=== PATIENT | female | born 1940 | race Caucasian/White ===

== ENCOUNTER 2017-06-09 23:56 | Observation (INO) ==
[2017-06-10 00:58] LABS: Bilirubin,Urine Negative (Negative); Blood,Urine Negative (Negative); Clarity,Urine Clear (Clear); Color,Urine Yellow (Yellow); Glucose,Urine (UA) Normal (Normal); Ketones,Urine Negative (Negative); Leukocyte Esterase,Urine Negative (Negative); Nitrite,Urine Negative (Negative); PH,Urine 6.5 pH Units (5.0-8.0); Protein,Urine Negative (Neg-Trace); Specific Gravity,Urine 1.013 (1.010-1.025); Urobilinogen,Urine Normal (Normal)
[2017-06-10 01:22] LABS: Basophils % 0.5 %; Eosinophils # 0.1 K/mcL (0.0-0.6); Eosinophils % 1.8 %; Hematocrit 27.2 % (35.3-44.9); Hemoglobin 9.5 g/dL (11.5-15.4); Immature Granulocytes % 0.4 % (0-4); Lymphocytes # 1.8 K/mcL (0.6-4.6); Lymphocytes % 31.4 %; Mean Corpuscular HGB Conc 34.9 g/dL (31.6-35.5); Mean Corpuscular Hemoglobin 31.9 pg (28.0-33.3); Mean Corpuscular Volume 91.3 fL (83.0-100.0); Monocytes # 0.7 K/mcL (0.0-1.3); Monocytes % 12.1 %; Neutrophils # 3.1 K/mcL (1.6-8.9); Platelet Count 192 K/mcL (140-400); Red Blood Count 2.98 M/mcL (3.82-4.97); Red Cell Distribution Width 14.1 % (11.5-14.5); Segmented Neutrophils % 53.8 %
[2017-06-10 01:28] LABS: Prothrombin Time 10.8 Seconds (9.4-12.1)
[2017-06-10 01:30] LABS: Activated Partial Thrombo Time 28.1 Seconds (26.0-36.0)
--- NOTE | 2017-06-10 01:31 | Emergency Department Note ---
Disposition Clinical Impression: Syncope Qualifiers: Syncope type: unspecified Qualified Code(s): R55 - Syncope and collapse Anemia Qualifiers: Anemia type: unspecified type Qualified Code(s): D64.9 - Anemia, unspecified Disposition: Admitted As Inpatient Condition: Fair Referrals: NONE,PCP [Primary Care Provider] - Syncope HPI - General Chief Complaint: ED Syncope Stated Complaint: syncope Time Seen by Provider: 06/10/17 00:10 Source: patient, family, EMS Mode of arrival: private vehicle Limitations: no limitations Nursing Notes Reviewed: Yes Vital Signs Reviewed: Yes - History of Present Illness Pt Subjective Complaint: collapsed Onset (ago): Just [employer] Number of episodes: 2 Duration: second(s) Description of Event: other ("Just passed out and then couldn't even sit up" per son) Prodromal Symptoms: none Witnessed: yes - by other (Patient's son) Context: at rest, getting out of bed Injuries Sustained Associated with Event: none Current Symptoms: none, back to baseline History: other (recently seen here for dyspnea; dx bronchitis) Treatments prior to arrival: none Associated trauma secondary to event: No - Related Data Home Medications Medication Instructions Recorded Confirmed Albuterol Sulfate [Proair Hfa] 2 puff IH Q4H 06/25/16 06/25/16 Amlodipine Besylate 10 mg PO DAILY 06/25/16 06/25/16 Aspirin [Lo-Dose Aspirin EC] 81 mg PO DAILY 06/25/16 06/25/16 Atorvastatin Calcium [Lipitor] 20 mg PO DAILY 06/25/16 06/25/16 Citalopram Hydrobromide 20 mg PO DAILY 06/25/16 06/25/16 [Citalopram HBr] Ezetimibe [Zetia] 10 mg PO DAILY 06/25/16 06/25/16 Lisinopril-HCTZ 20-12.5 [Prinzide 1 each PO DAILY 06/25/16 06/25/16 20-12.5] [place]-3/Dha/Epa/Fish Oil [Fish Oil 3,000 mg PO DAILY 06/25/16 06/25/16 1,000 mg Softgel] Pantoprazole Sodium [Protonix] 20 mg PO DAILY 06/25/16 06/25/16 Propranolol HCl 60 mg PO BID 06/25/16 06/25/16 Solifenacin Succinate [Vesicare] 10 mg PO DAILY 06/25/16 06/25/16 Spironolactone [Aldactone] 25 mg PO BID 06/25/16 06/25/16 Travoprost [Travatan Z] 2.5 ml OP HS 06/25/16 06/25/16 Ziprasidone HCl [Geodon] 120 mg PO HS 06/25/16 06/25/16 glyBURIDE [GlyBURIDE] 5 mg PO 0800 06/25/16 06/25/16 Previous Rx's Medication Instructions Recorded cephALEXin [Keflex] 500 mg PO TID #21 capsule 06/25/16 Albuterol Sulfate [Albuterol 2 puff IH Q4HR PRN #1 hfa.aer.ad 05/18/17 Inhaler] Levofloxacin [Levaquin] 750 mg PO DAILY #5 tablet 05/18/17 predniSONE [PredniSONE] 40 mg PO DAILY #10 tablet 05/18/17 Allergies Allergy/AdvReac Type Severity Reaction Status Date / Time Sulfa (Sulfonamide Allergy Hives Verified 05/18/17 03:15 Antibiotics) sulfacetamide Allergy Hives Verified 05/18/17 03:15 [From Sulfacet-R] sulfur [From Sulfacet-R] Allergy Hives Verified 05/18/17 03:15 All systems ED: reviewed and negative except as stated. Review of Systems: As Per HPI Constitutional: Reports: weight change ("lost 20 pounds in 2 months"). Denies: fever, chills, weakness, night sweats Eyes: Denies: eye pain, eye discharge, vision change ENT ED: Denies: ear pain, throat pain, congestion, dysphagia Cardiovascular: Denies: chest pain, palpitations, dyspnea on exertion, orthopnea , edema, syncope Respiratory: Denies: cough, dyspnea, wheezes, hemoptysis, stridor Gastrointestinal: Denies: abdominal pain, nausea, vomiting, diarrhea, constipation, hematemesis, melena, hematochezia Genitourinary: Denies: urgency, dysuria, frequency, hematuria Musculoskeletal: Denies: back pain, neck pain, joint swelling, arthralgia Integumentary: Denies: rash Neurological: Denies: headache, weakness, numbness, paresthesias, confusion, abnormal gait, vertigo Endocrine: Denies: fatigue Hematological/Lymphatic: Denies: easy bleeding, easy bruising Past Medical History - Past Medical History Attestation: Yes The following information was validated with the patient. Source: patient Medical history: Reports: COPD, diabetes, hyperlipidemia, hypertension, other Psychiatric history: Reports: anxiety, depression, schizophrenia DISHWASHER PREPARER history: Reports: no DISHWASHER PREPARER history - Social History Smoking Status: Never smoker Smokeless Tobacco Status: No Alcohol use: Reports: none Drug use: Reports: none Physical Exam - General Limitations: no limitations General appearance: alert, in no apparent distress - Head Head exam: atraumatic, normocephalic, normal inspection - Eye Eye exam: Present: normal appearance, PERRL, EOMI. Absent: scleral icterus, conjunctival injection, nystagmus, miosis, mydriasis, periorbital swelling, periorbital tenderness - ENT ENT exam: normal exam, normal oropharynx, mucous membranes moist - Neck Neck exam: Present: normal inspection, full ROM - Chest Chest inspection: Present: normal inspection, symmetric chest wall rise - Respiratory Respiratory exam: Present: normal lung sounds bilaterally. Absent: respiratory distress, wheezes, stridor - Cardiovascular Cardiovascular exam: Present: regular rate, normal rhythm - Abdominal Exam Abdominal exam: Present: soft, Non-Tender. Absent: distention, guarding, rebound, rigidity, mass - Extremities Exam Extremities exam: Present: normal inspection, full ROM - Expanded Lower Extremity Exam Gait: observed and normal - Back Exam Back exam: Present: normal inspection, full ROM. Absent: CVA tenderness (R), CVA tenderness (L) - Neurological Exam Neurological exam: Present: alert, oriented X3, CN II-XII intact, normal gait - Psychiatric Psychiatric exam: Present: normal affect, normal mood - Skin Skin exam: Present: warm, dry, intact, normal color Course Course Narrative: PAtient presents by EMS for evaluation of syncope x 2 per her son. Patient states that she was just really tired. She has no complaints at this time. Labs , CT and CXR ordered. EKG already done - NSR, unchanged compared to previous. Exam is unremarkable. No reported trauma. CT head - no acute abnormality. CXR normal. LAbs - acute anemia. 03/20 new compared with 05/18. Patient denies bleeding. Has had no bowel abnormalities. Denies trauma. Has no complaints of pain. Case discussed with Dr. Mcclure. He has had face to face time with the patient. He agrees with the assessment and plan. Patient has been accepted by the hospitalist. Vital Signs Temperature 97.7 F 06/10/17 00:35 Pulse Rate 76 06/10/17 00:35 Respiratory Rate 18 06/10/17 00:35 Blood Pressure 112/76 06/10/17 00:35 O2 Sat by Pulse Oximetry 99 06/10/17 00:35 Temperature 97.7 F 06/10/17 00:35 Pulse Rate 76 06/10/17 00:35 Respiratory Rate 18 06/10/17 00:35 Blood Pressure 112/76 06/10/17 00:35 O2 Sat by Pulse Oximetry 99 06/10/17 00:35 Oxygen Delivery Oxygen Delivery Room Air Syncope - Medical Records Medical records reviewed: Yes I reviewed the patient's medical records. - Lab Data Lab results reviewed: Yes I reviewed the patient's lab results. Lab results narrative: Laboratory Last Values WBC 5.7 K/mcL (4.3-11.1) 06/10/17 01:12 RBC 2.98 M/mcL (3.82-4.97) L 06/10/17 01:12 Hgb 9.5 g/dL (11.5-15.4) L 06/10/17 01:12 Hct 27.2 % (35.3-44.9) L 06/10/17 01:12 MCV 91.3 fL (83.0-100.0) 06/10/17 01:12 MCH 31.9 pg (28.0-33.3) 06/10/17 01:12 MCHC 34.9 g/dL (31.6-35.5) 06/10/17 01:12 RDW 14.1 % (11.5-14.5) 06/10/17 01:12 Plt Count 192 K/mcL (140-400) 06/10/17 01:12 MPV 9.0 fL (9.4-12.4) L 06/10/17 01:12 Immature Gran % 0.4 % (0-4) 06/10/17 01:12 Seg Neutrophils % 53.8 % 06/10/17 01:12 Lymphocytes % 31.4 % 06/10/17 01:12 Monocytes % 12.1 % 06/10/17 01:12 Eosinophils % 1.8 % 06/10/17 01:12 Basophils % 0.5 % 06/10/17 01:12 Neutrophils # 3.1 K/mcL (1.6-8.9) 06/10/17 01:12 Lymphocytes # 1.8 K/mcL (0.6-4.6) 06/10/17 01:12 Monocytes # 0.7 K/mcL (0.0-1.3) 06/10/17 01:12 Eosinophils # 0.1 K/mcL (0.0-0.6) 06/10/17 01:12 Basophils # 0.0 K/mcL (0.0-0.2) 06/10/17 01:12 PT 10.8 Seconds (9.4-12.1) 06/10/17 01:12 INR 1.0 06/10/17 01:12 APTT 28.1 Seconds (26.0-36.0) 06/10/17 01:12 D-Dimer 907 ng/mLFEU (0-500) H 06/10/17 01:12 Sodium 134 mEq/L (136-145) L 06/10/17 01:12 Potassium 3.7 mEq/L (3.5-4.5) 06/10/17 01:12 Chloride 100 mEq/L (98-109) 06/10/17 01:12 Carbon Dioxide 25 mEq/L (19-29) 06/10/17 01:12 BUN 21 mg/dL (7-20) H 06/10/17 01:12 Creatinine 1.07 mg/dL (0.57-1.11) 06/10/17 01:12 Est GFR ( Amer) > 60 (> 60) 06/10/17 01:12 Est GFR (Non-Af Amer) 50 (> 60) L 06/10/17 01:12 BUN/Creatinine Ratio 20 (6-26) 06/10/17 01:12 Glucose 117 mg/dL (70-99) H 06/10/17 01:12 Calculated Osmolality 282 (280-300) 06/10/17 01:12 Calcium 9.1 mg/dL (8.6-10.8) 06/10/17 01:12 Total Bilirubin 0.4 mg/dL (0.2-1.2) 06/10/17 01:12 AST 16 Units/L (5-34) 06/10/17 01:12 ALT 17 Units/L (0-55) 06/10/17 01:12 Alkaline Phosphatase 103 Units/L (38-126) 06/10/17 01:12 Troponin I 0.01 ng/mL (0-0.03) 06/10/17 01:12 Serum Total Protein 6.5 g/dL (6.0-8.3) 06/10/17 01:12 Albumin 2.9 g/dL (3.5-5.0) L 06/10/17 01:12 Globulin 3.6 g/dL (2.4-3.5) H 06/10/17 01:12 Albumin/Globulin Ratio 0.8 (1.1-2.2) L 06/10/17 01:12 Urine Color Yellow (Yellow) 06/10/17 00:50 Urine Clarity Clear (Clear) 06/10/17 00:50 Urine pH 6.5 pH Units (5.0-8.0) 06/10/17 00:50 Ur Specific [place] 1.013 (1.010-1.025) 06/10/17 00:50 Urine Protein Negative mg/dL (Neg-Trace) 06/10/17 00:50 Urine Glucose (UA) Normal mg/dL (Normal) 06/10/17 00:50 Urine Ketones Negative mg/dL (Negative) 06/10/17 00:50 Urine Blood Negative (Negative) 06/10/17 00:50 Urine Nitrite Negative (Negative) 06/10/17 00:50 Urine Bilirubin Negative (Negative) 06/10/17 00:50 Urine Urobilinogen Normal mg/dL (Normal) 06/10/17 00:50 Ur Leukocyte Esterase Negative (Negative) 06/10/17 00:50 Ur Culture Indicated? NO (NO) 06/10/17 00:50 Lab Results 06/10/17 Range/Units 00:50 Urine Color Yellow (Yellow) Urine Clarity Clear (Clear) Urine pH 6.5 (5.0-8.0) pH Units Ur Specific [place] 1.013 (1.010-1.025) Urine Protein Negative (Neg-Trace) mg/dL Urine Glucose (UA) Normal (Normal) mg/dL Urine Ketones Negative (Negative) mg/dL Urine Blood Negative (Negative) Urine Nitrite Negative (Negative) Urine Bilirubin Negative (Negative) Urine Urobilinogen Normal (Normal) mg/dL Ur Leukocyte Esterase Negative (Negative) Ur Culture Indicated? NO (NO) - Radiology Data Radiology results reviewed: Yes I reviewed the patient's radiology results. Chest X-Ray 06/10/17 00:11 IMPRESSION: Stable chest x-ray. No definite acute disease. D/ / Bharath Menendez MD / Bharath Menendez MD Interpreting Provider: Bharath Menendez MD Head CT 06/10/17 00:12 IMPRESSION: No acute intracranial abnormality. Chronic small vessel disease. Multifocal chronic appearing sinusitis. D/ / David Mata MD / David Mata MD Interpreting Provider: David Mata MD - EKG Data EKG attestation: Yes I reviewed and interpreted this EKG. EKG shows normal: sinus rhythm Rate: normal [place]/QRS: left axis deviation, RBBB When compared to previous EKG there are: no significant changes Interpretation: unchanged when compared to prior tracing (date) (05/18/17)
[2017-06-10 01:39] LABS: Alanine Aminotransferase 17 Units/L (0-55); Albumin 2.9 g/dL (3.5-5.0); Albumin/Globulin Ratio 0.8 (1.1-2.2); Alkaline Phosphatase 103 Units/L (38-126); Aspartate Amino Transferase 16 Units/L (5-34); BUN/Creatinine Ratio 20 (6-26); Bilirubin,Total 0.4 mg/dL (0.2-1.2); Blood Urea Nitrogen 21 mg/dL (7-20); Calcium 9.1 mg/dL (8.6-10.8); Carbon Dioxide 25 mEq/L (19-29); Chloride 100 mEq/L (98-109); Globulin 3.6 g/dL (2.4-3.5); Glucose 117 mg/dL (70-99); Osmolality,Calculated 282 (280-300); Potassium 3.7 mEq/L (3.5-4.5); Sodium 134 mEq/L (136-145); Total Protein 6.5 g/dL (6.0-8.3); eGFR For African Americans > 60 (> 60); eGFR For Non-African Americans 50 (> 60)
[2017-06-10] MEDS ORDERED: Naloxone 0.4 MG/ML INJ IVP PRN (02:51)
[2017-06-10] MEDS ORDERED: 0.9 % Sodium Chloride 1,000 ML IVC SCH (03:00)
--- NOTE | 2017-06-10 03:01 | Internal Med History&Physical ---
Date of Encounter: 06/10/17 Time of Encounter: 02:56 Assessment and Plan (1) Syncope Current visit: Yes Status: Acute unsure if this presents a true syncope event since patient was on the couch orthostats tele monitoring PT/OT 500cc IVF. Mild hyponatremia -doubt symptomatic 24 hours observation in the hospital Qualifiers: Syncope type: unspecified Qualified Code(s): R55 - Syncope and collapse (2) HTN (hypertension), benign Current visit: Yes Status: Acute BP low normal. continue norvasc hold inderal target BP in elderly 140-160s SBP (3) Anemia Current visit: Yes Status: Acute mild doubt symptomatic check Fe panel, nutritional studies no active GI bleed reported continue close monitoring and if low Fe, outpatient GI eval and PCP surveillance Qualifiers: Anemia type: unspecified type Qualified Code(s): D64.9 - Anemia, unspecified Internal Medicine - H&P: HPI Chief complaint: "syncope" History of present illness: Ms. Cardona is a 77 year old female with hx of HTN, depression, previously DMII but now not on meds, who presents with "syncope" episode. Admitted for observation. She lives with her 50 yo son and this past evening, the son found her to have "pass out" on the couch. She was reported to have "laid in a weird angle on the couch". When his son asked if she was alright, patient reported that she was well. However, son felt that her mother was "a little off" for sleeping on the couch. When patient was asked, she said that her bed was too soft and that she sleeps on the couch as it cushion is firmer. Review noted an episode of fall a couple of weeks ago. She is not using any walking aides at baseline. EKG reviewed with rate 70, PVC, RBBB CT/CT head/brain wo con IMPRESSION: No acute intracranial abnormality. Chronic small vessel disease. Multifocal chronic appearing sinusitis XR/XR chest 1V portable IMPRESSION: Stable chest x-ray. No definite acute disease. Past Med Surg Social Fam HX - Past Medical History Medical history: COPD, diabetes, hyperlipidemia, hypertension, other Psychiatric history: anxiety, depression, schizophrenia - Past Surgical History Surgical History: no surgical history, non-contributory - Social History Smoking Status: Never smoker Smokeless Tobacco Status: No Alcohol use: none Drug use: none - Additional Family History Additional family history: HTN Internal Medicine - H&P: Meds Albuterol Sulfate [Proair Hfa] 2 puff IH Q4H 06/25/16 [History] Amlodipine Besylate 10 mg PO DAILY 06/25/16 [History] Aspirin [Lo-Dose Aspirin EC] 81 mg PO DAILY 06/25/16 [History] Atorvastatin Calcium [Lipitor] 20 mg PO DAILY 06/25/16 [History] Citalopram Hydrobromide [Citalopram HBr] 20 mg PO DAILY 06/25/16 [History] Ezetimibe [Zetia] 10 mg PO DAILY 06/25/16 [History] Lisinopril-HCTZ 20-12.5 [Prinzide 20-12.5] 1 each PO DAILY 06/25/16 [History] [place]-3/Dha/Epa/Fish Oil [Fish Oil 1,000 mg Softgel] 3,000 mg PO DAILY 06/25/16 [History] Pantoprazole Sodium [Protonix] 20 mg PO DAILY 06/25/16 [History] Propranolol HCl 60 mg PO BID 06/25/16 [History] Solifenacin Succinate [Vesicare] 10 mg PO DAILY 06/25/16 [History] Spironolactone [Aldactone] 25 mg PO BID 06/25/16 [History] Travoprost [Travatan Z] 2.5 ml OP HS 06/25/16 [History] Ziprasidone HCl [Geodon] 120 mg PO HS 06/25/16 [History] cephALEXin [Keflex] 500 mg PO TID #21 capsule 06/25/16 [Rx] glyBURIDE [GlyBURIDE] 5 mg PO 0800 06/25/16 [History] Albuterol Sulfate [Albuterol Inhaler] 2 puff IH Q4HR PRN #1 hfa.aer.ad 05/18/17 [Rx] Levofloxacin [Levaquin] 750 mg PO DAILY #5 tablet 05/18/17 [Rx] predniSONE [PredniSONE] 40 mg PO DAILY #10 tablet 05/18/17 [Rx] 3 Allergy/AdvReac Type Severity Reaction Status Date / Time Sulfa (Sulfonamide Allergy Hives Verified 05/18/17 03:15 Antibiotics) sulfacetamide Allergy Hives Verified 05/18/17 03:15 [From Sulfacet-R] sulfur [From Sulfacet-R] Allergy Hives Verified 05/18/17 03:15 All Systems PM: A 10-system review of systems was performed and is negative for pertinent findings except as documented above in the HPI. Review of systems: ROS 14 point review of systems reviewed as best as possible given presentation. Pertinent positive or negative as per HPI or otherwise reviewed as negative - Constitutional Vitals: Temp Pulse Resp BP Pulse Ox 97.7 F 69 18 121/64 97 06/10/17 00:35 06/10/17 02:03 06/10/17 02:03 06/10/17 02:03 06/10/17 02:03 Exam: General - AAO x 3 Psych - Appropriate affect/speech. No agitation Eyes - SIA. Eye lids intact. No scleral icterus Neuro - No gross peripheral or central neuro deficits with intact CN 2-12 exam Heart - Sinus. RRR. S1 and S2 present. No added HS/murmurs appreciated. No elevated JVD appreciated. Lung - Adequate air entry b/l, No crackles/wheezes appreciated GI - Soft, non-tender. No hepatosplenomegaly/ascites. BS+ - No CVA/suprapubic tenderness or palpable bladder distension Skin - Intact. No rash/petechiae/ecchymosis. Warm extremities. +2 b/l LE edema MSK - Joints with normal ROM. No joint swellings Internal Med - H&P Results - Labs CBC & Chem 7: 06/10/17 01:12 06/10/17 01:12
[2017-06-10] MEDS ORDERED: 0.9 % Sodium Chloride 500 ML IVC ONE (05:00)
[2017-06-10 05:10] LABS: Immature Reticulocyte % 4.9 % (11.0-38.0); Retculocyte # 0.03 M/mcL (0.05-0.10); Reticulocyte % 1.1 % (1.6-2.8)
[2017-06-10 05:20] LABS: Hemoglobin A1C 4.9 %
[2017-06-10 05:21] LABS: % Iron Saturation 16 % (15-50); Iron 35 mcg/dL (50-170); Transferrin 158 mg/dL (180-382)
[2017-06-10 05:42] LABS: Ferritin 392 ng/ml (5-204)
[2017-06-10 05:55] LABS: Folate 5.2 ng/mL (7.0-31.4)
[2017-06-10] MEDS ORDERED: amLODIPine 5 MG TABLET PO SCH (09:00)
[2017-06-10] MEDS: Aspirin Enteric Coated 81 MG Tablet PO SCH (09:09)
--- NOTE | 2017-06-10 13:17 | Internal Med Progress Note ---
<Fanny Ayers - Last Filed: 06/10/17 14:59> Date of Encounter: 06/10/17 Time of Encounter: 13:15 - Assessment and plan (1) Syncope Current Visit: Yes Status: Acute Assessment and plan: Son reports a syncopal episode when he was helping her walk his mother from the couch to her bed. States that she was unconscious for 10-[address] and chest x-ray normal Orthostatic vital signs normal Patient with a history of hypertension, diabetes, and schizophrenia. Home medications include glimiperide 4mg , Norvasc 10 mg, propranolol 60 mg, citalopram 20 mg, and geodon 120 mg. Her blood pressure has been low normal and her A1c is 4.9. Glimeperie, norvasc, and propranolol have been stopped. It is possible that she had a syncopal episode due to low blood pressure, low blood sugar, or she recently took her qhs dose of geodon. She reports a 20 pound weight loss in the past 3 months. She also states that she eats sporadically with her son, not eating 3 good meals a day. Labs show mild anemia. She is also low on iron and folate. Telemetry monitoring PT/OT D-dimer elevated, will check CTA Echocardiogram and carotid duplex Suggest follow-up with primary care physician and mental health physician to address medication management. Qualifiers: Syncope type: unspecified Qualified Code(s): R55 - Syncope and collapse - Subjective Interval history: Patient states that she feels fine. She is asking when she can go back home. She states that she always sleeps on the couch due to its firmer cushions. States that her bed is too soft. - Constitutional Vitals: Temp Pulse Resp BP Pulse Ox 98.5 F 77 18 121/70 96 06/10/17 11:13 06/10/17 11:13 06/10/17 11:13 06/10/17 11:13 06/10/17 11:13 - Head Head exam: Present: atraumatic, normocephalic - Eye Eye exam: Present: PERRL, conjuntiva pink, sclera anicteric Pupils: Present: PERRL - Neck Neck exam general surgery: Present: supple, trachea midline. Absent: lymphadenopathy - Respiratory Respiratory exam: Present: CTAB. Absent: accessory muscle use, rales, rhonchi, wheezes - Cardiovascular Cardiovascular exam: Present: RRR, +S1, +S2. Absent: diastolic murmur, gallop, rubs, systolic murmur - GI/Abdominal GI/Abdominal exam: Present: normal bowel sounds, soft, no peritoneal signs. Absent: distended, tenderness - Extremities Exam Extremities exam: Present: warm. Absent: pedal edema, tenderness Additional comments: posterior tibial pulses palpable and symmetric - Neurological Exam Neurological exam: Present: CN II-XII intact, no focal deficits. Absent: facial droop, speech deficit - Psychiatric Psychiatric exam: Present: normal affect, normal mood - Skin Skin exam: Present: dry, intact Internal Medicine: Result - Labs CBC & Chem 7: 06/10/17 01:12 06/10/17 01:12 - ABG Interpretation ABG results: PT/INR, D-dimer PT 10.8 Seconds (9.4-12.1) 06/10/17 01:12 D-Dimer 907 ng/mLFEU (0-500) H 06/10/17 01:12 Consult Discharge Plan - Plan Additional Instructions: You need to follow-up with your primary care physician and your mental health physician to talk about your recent weight loss and your medications. They may need to stop certain medications or adjust the dose. Referrals: Aleida Charles CNP [Partnered Physician] - 06/14/17 11:00 am (PLEASE TAKE YOUR NEW PATIENT PACKET WITH YOU FILLED OUT TO YOUR APPOINTMENT. SHOW UP 30 MINS EARLY. TAKE PICTURE ID, [email or web address], ALL MEDICATIONS IN THE BOTTLES. IF YOU NEED TO CANCEL YOUR APPOINTMENT PLEASE CALL [phone] WITHIN 24 HOURS OF YOUR APPOINTMENT) <Karsten Salter - Last Filed: 06/10/17 18:32> Date of Encounter: 06/10/17 - Assessment and plan (1) Carotid artery narrowing Current Visit: Yes Status: Acute Qualifiers: Laterality: bilateral Qualified Code(s): I65.23 - Occlusion and stenosis of bilateral carotid arteries (2) Syncope Current Visit: Yes Status: Acute Qualifiers: Syncope type: unspecified Qualified Code(s): R55 - Syncope and collapse (3) HTN (hypertension), benign Current Visit: Yes Status: Acute (4) Anemia Current Visit: Yes Status: Acute Qualifiers: Anemia type: other cause Other causes of anemia: chronic disease, other Qualified Code(s): D63.8 - Anemia in other chronic diseases classified elsewhere - Constitutional Vitals: Temp Pulse Resp BP Pulse Ox 99.4 F 102 18 130/67 96 06/10/17 16:57 06/10/17 16:57 06/10/17 16:57 06/10/17 16:57 06/10/17 16:57 Internal Medicine: Result - Labs CBC & Chem 7: 06/10/17 01:12 06/10/17 01:12 - ABG Interpretation ABG results: PT/INR, D-dimer PT 10.8 Seconds (9.4-12.1) 06/10/17 01:12 D-Dimer 907 ng/mLFEU (0-500) H 06/10/17 01:12 - Impressions Impressions Chest CTA 06/10/17 11:37 IMPRESSION: No pulmonary artery emboli are identified. Patchy ground-glass opacities are seen within the lungs bilaterally, with the greatest involvement in the right middle and lower lobe. These changes could be related to an atypical inflammatory process, and felt unlikely to represent patchy areas of interstitial edema. Recommend a follow-up CT scan of the chest in 3 months to document resolution, as an underlying sub solid ground-glass nodule cannot be excluded. Subsegmental areas of tree-in-bud like opacities seen just above the hemidiaphragm in the right middle and lower lobe which could be related to bronchiolitis as well. Multiple cystic lesions are identified throughout the liver, predominantly which appear benign in appearance. There is a lateral segment left hepatic lobe lesion in segment 2 which measures 2.5 cm, and 25 Hounsfield units which appears slightly more hyperdense compared to the remainder of the cystic lesions. This could be further evaluated with a dedicated follow-up CT in 6 months if the patient is at low risk for hepatocellular carcinoma. If at an average or higher risk, further evaluation with dedicated CT or MR imaging with contrast per liver mass protocol would be recommended. Small hiatal hernia. D/ / Matti Moore MD / Matti Moore MD Interpreting Provider: Matti Moore MD - Attending Attestation I examined this patient and my medical decision-making was reviewed with the Resident Physician on 06/10/17. I agree with the documented findings, disposition and treatment plan as described except to the extent set forth below. Ms Cardona is currently in observation for syncopal episode. She is moderate to high risk due to potential for worsening clinical status. Ms Cardona feels OK. No dizziness or neuro symptoms. Echo pending. Carotid on R has 80-99% stenosis. No pulmonary emboli but chronic changes. Exam Alert. Comfortable Mucus membranes dry Heart reg No wheeze Abd soft I/P 1. Syncope - multifactorial - meds, carotid disease, blood sugar. Check CTA of neck in AM Further diagnoses and plan as above.
[2017-06-10] MEDS: ZIPRASIDONE PO SCH (20:36)
[2017-06-10] MEDS ORDERED: ZIPRASIDONE HCL PO SCH (21:00)
[2017-06-11 05:35] LABS: Basophils % 0.4 %; Eosinophils # 0.1 K/mcL (0.0-0.6); Hematocrit 28.4 % (35.3-44.9); Hemoglobin 9.6 g/dL (11.5-15.4); Immature Granulocytes % 0.2 % (0-4); Lymphocytes # 1.5 K/mcL (0.6-4.6); Lymphocytes % 28.9 %; Mean Corpuscular HGB Conc 33.8 g/dL (31.6-35.5); Mean Corpuscular Hemoglobin 31.3 pg (28.0-33.3); Mean Corpuscular Volume 92.5 fL (83.0-100.0); Mean Platelet Volume 9.3 fL (9.4-12.4); Monocytes # 0.6 K/mcL (0.0-1.3); Monocytes % 12.6 %; Neutrophils # 2.8 K/mcL (1.6-8.9); Platelet Count 173 K/mcL (140-400); Red Blood Count 3.07 M/mcL (3.82-4.97); Red Cell Distribution Width 14.2 % (11.5-14.5); Segmented Neutrophils % 55.9 %
[2017-06-11 05:36] LABS: BUN/Creatinine Ratio 18 (6-26); Blood Urea Nitrogen 15 mg/dL (7-20); Calcium 8.9 mg/dL (8.6-10.8); Carbon Dioxide 25 mEq/L (19-29); Chloride 104 mEq/L (98-109); Glucose 88 mg/dL (70-99); Magnesium 1.4 mg/dL (1.6-2.6); Osmolality,Calculated 282 (280-300); Potassium 3.6 mEq/L (3.5-4.5); Sodium 136 mEq/L (136-145); eGFR For African Americans > 60 (> 60); eGFR For Non-African Americans > 60 (> 60)
[2017-06-11] MEDS: Aspirin Enteric Coated 81 MG Tablet PO SCH (07:47)
--- NOTE | 2017-06-11 09:28 | Internal Med Progress Note ---
<Fanny Ayers - Last Filed: 06/11/17 12:48> Date of Encounter: 06/11/17 Time of Encounter: 09:23 - Assessment and plan (1) Syncope Current Visit: Yes Status: Acute Assessment and plan: Son reports a syncopal episode when he was helping her walk his mother from the couch to her bed. States that she was unconscious for 10-[address] and chest x-ray normal Orthostatic vital signs normal CTA chest negative for PE cleared by PT and OT Labs show mild anemia,low iron, and folate. Echocardiogram: EF >70%. Normal LV chamber size, wall thickness, and function. Mild left ventricular diastolic dysfunction. Mild dynamic gradient across the LVOT. Normal right ventricular structure and function. No evidence of pulmonary hypertension. No significant valvular dysfunction Patient with a history of hypertension, diabetes, and schizophrenia. Home medications include glimiperide 4mg , Norvasc 10 mg, propranolol 60 mg, citalopram 20 mg, and geodon 120 mg. Her blood pressure has been low normal and her A1c is 4.9. Glimeperie, norvasc, and propranolol have been stopped. It is possible that she had a syncopal episode due to low blood pressure, low blood sugar, or she recently took her qhs dose of geodon. She reports a 20 pound weight loss in the past 3 months. She also states that she eats sporadically with her son, not eating 3 good meals a day. carotid duplex findings of right bifurcation critical stenosis, 80-99%; left mid ICA severe 60-79% stenosis; vascular surgery consulted Neck CTA: Approximately 65% stenosis near the origin of the right internal carotid artery with heavy calcification. Mild disease of the left carotid system with no hemodynamic stenosis. CTA also found (?incidental) right thyroid nodule, ground-glass opacity and tree -in-bud opacities in the lungs, and liver nodules. Qualifiers: Syncope type: unspecified Qualified Code(s): R55 - Syncope and collapse (2) Carotid artery narrowing Current Visit: Yes Status: Acute Qualifiers: Laterality: bilateral Qualified Code(s): I65.23 - Occlusion and stenosis of bilateral carotid arteries (3) Abnormal finding on lung imaging Current Visit: Yes Status: Acute Assessment and plan: finding on imaging, ? Incidental CTA of the chest for elevated d-dimer showed abnormalities of the lungs: "Patchy ground-glass opacities are seen within in the lungs bilaterally, the greatest involvement in the right middle and lower lobe. These changes could be related to an atypical inflammatory process, and thought unlikely to represent patchy areas of interstitial edema. Recommend a follow-up CT scan of the chest in 3 months to document resolution, as underlying sub-solid ground glass nodule cannot be excluded. Subsegmental areas of tree-in-bud like opacities seen just above the hemidiaphragm in the right middle and lower lobe which could be related to bronchiolitis as well." (4) Lesion of liver Current Visit: Yes Status: Acute Assessment and plan: finding on imaging, ? Incidental CTA of the chest revealed lesions of the liver: "Multiple cystic lesions are identified throughout the liver, predominantly which appear benign in appearance. There is a lateral segment left hepatic lobe lesion in segment 2 which measures 2.5 cm, and 25 Hounsfield units which appears slightly more hypodense compared the remainder of the cystic lesions. This could be further evaluated with a dedicated follow-up CT in 6 months if the patient is at low risk for hepatocellular carcinoma. If at average or higher risk, further evaluation with dedicated CT or MR imaging with contrast per liver mass protocol will be recommended." (5) Solitary nodule of right lobe of thyroid Current Visit: Yes Status: Acute Assessment and plan: finding on imaging, ? Incidental chest CTA: "There is a small hypodense nodule measuring 8 mm within the right thyroid lobe." neck CTA: "A 1 cm right thyroid nodule is seen which may represent a cyst." - Subjective Interval history: Patient seen alone in her room this morning. She states she did not eat breakfast due to their not being any salt to put on the food. She denies pain. - Constitutional Vitals: Temp Pulse Resp BP Pulse Ox 97.9 F 104 20 145/66 96 06/11/17 07:07 06/11/17 07:07 06/11/17 07:07 06/11/17 07:07 06/11/17 07:07 - Head Head exam: Present: atraumatic, normocephalic - Eye Eye exam: Present: PERRL, conjuntiva pink, sclera anicteric Pupils: Present: PERRL - Neck Neck exam general surgery: Present: supple, trachea midline. Absent: lymphadenopathy - Respiratory Respiratory exam: Present: CTAB. Absent: accessory muscle use, rales, rhonchi, wheezes - Cardiovascular Cardiovascular exam: Present: RRR, +S1, +S2. Absent: diastolic murmur, gallop, rubs, systolic murmur - GI/Abdominal GI/Abdominal exam: Present: normal bowel sounds, soft, no peritoneal signs. Absent: distended, tenderness - Extremities Exam Extremities exam: Present: warm. Absent: pedal edema, tenderness Additional comments: Posterior tibial pulses palpable and symmetric - Neurological Exam Neurological exam: Present: CN II-XII intact, oriented X3, no focal deficits. Absent: pronater drift, facial droop, speech deficit - Psychiatric Additional comments: pressured speech with flight of ideas - Skin Skin exam: Present: dry, intact Internal Medicine: Result - Labs CBC & Chem 7: 06/11/17 04:56 06/11/17 04:56 Labs: Short CBC 06/11/17 Range/Units 04:56 WBC 5.0 (4.3-11.1) K/mcL Hgb 9.6 L (11.5-15.4) g/dL Hct 28.4 L (35.3-44.9) % Plt Count 173 (140-400) K/mcL Neutrophils # 2.8 (1.6-8.9) K/mcL BMP 06/11/17 04:56 Sodium 136 Potassium 3.6 Chloride 104 Carbon Dioxide 25 BUN 15 Creatinine 0.84 Glucose 88 Calcium 8.9 - ABG Interpretation ABG results: PT/INR, D-dimer PT 10.8 Seconds (9.4-12.1) 06/10/17 01:12 D-Dimer 907 ng/mLFEU (0-500) H 06/10/17 01:12 - Impressions Impressions Chest CTA 06/10/17 11:37 IMPRESSION: No pulmonary artery emboli are identified. Patchy ground-glass opacities are seen within the lungs bilaterally, with the greatest involvement in the right middle and lower lobe. These changes could be related to an atypical inflammatory process, and felt unlikely to represent patchy areas of interstitial edema. Recommend a follow-up CT scan of the chest in 3 months to document resolution, as an underlying sub solid ground-glass nodule cannot be excluded. Subsegmental areas of tree-in-bud like opacities seen just above the hemidiaphragm in the right middle and lower lobe which could be related to bronchiolitis as well. Multiple cystic lesions are identified throughout the liver, predominantly which appear benign in appearance. There is a lateral segment left hepatic lobe lesion in segment 2 which measures 2.5 cm, and 25 Hounsfield units which appears slightly more hyperdense compared to the remainder of the cystic lesions. This could be further evaluated with a dedicated follow-up CT in 6 months if the patient is at low risk for hepatocellular carcinoma. If at an average or higher risk, further evaluation with dedicated CT or MR imaging with contrast per liver mass protocol would be recommended. Small hiatal hernia. D/ / Matti Moore MD / Matti Moore MD Interpreting Provider: Matti Moore MD Consult Discharge Plan - Plan Additional Instructions: You need to follow-up with your primary care physician and your mental health physician to talk about your recent weight loss and your medications. They may need to stop certain medications or adjust the dose. Referrals: Aleida Charles CNP [Partnered Physician] - 06/14/17 11:00 am (PLEASE TAKE YOUR NEW PATIENT PACKET WITH YOU FILLED OUT TO YOUR APPOINTMENT. SHOW UP 30 MINS EARLY. TAKE PICTURE ID, INS.CARDS, ALL MEDICATIONS IN THE BOTTLES. IF YOU NEED TO CANCEL YOUR APPOINTMENT PLEASE CALL [phone] WITHIN 24 HOURS OF YOUR APPOINTMENT) <Sukumar Barksdale - Last Filed: 06/11/17 17:21> Date of Encounter: 06/11/17 - Constitutional Vitals: Temp Pulse Resp BP Pulse Ox 98.7 F 109 16 136/75 96 06/11/17 14:47 06/11/17 14:47 06/11/17 14:47 06/11/17 14:47 06/11/17 14:47 Internal Medicine: Result - Labs CBC & Chem 7: 06/11/17 04:56 06/11/17 04:56 Labs: Short CBC 06/11/17 Range/Units 04:56 WBC 5.0 (4.3-11.1) K/mcL Hgb 9.6 L (11.5-15.4) g/dL Hct 28.4 L (35.3-44.9) % Plt Count 173 (140-400) K/mcL Neutrophils # 2.8 (1.6-8.9) K/mcL BMP 06/11/17 04:56 Sodium 136 Potassium 3.6 Chloride 104 Carbon Dioxide 25 BUN 15 Creatinine 0.84 Glucose 88 Calcium 8.9 - ABG Interpretation ABG results: PT/INR, D-dimer PT 10.8 Seconds (9.4-12.1) 06/10/17 01:12 D-Dimer 907 ng/mLFEU (0-500) H 06/10/17 01:12 - Impressions Impressions Echocardiogram 06/10/17 11:37 Impressions: Sinus tachycardia. LVEF >70%. Normal LV chamber size, wall thickness and function. Mild left ventricular diastolic dysfunction. Mild dynamic gradient across the LVOT, mean 12 mmHg. Normal right ventricular structure and function. No evidence of pulmonary hypertension. No significant valvular dysfunction. Left Ventricular Wall Motion: Rest Echo Findings All wall segments showed normal motion. Findings: Study Quality * Technically adequate exam. ECG Findings * Sinus tachycardia. Left Ventricle * LVEF >70%. * Normal LV chamber size, wall thickness and function. * Mild left ventricular diastolic dysfunction. * Mild dynamic gradient across the LVOT, mean 12 mmHg. Right Ventricle * Normal right ventricular structure and function. Left Atrium * Normal left atrial size. Right Atrium * Normal right atrial size. Aortic Valve * Aortic valve not well visualized. * No aortic regurgitation. * No aortic stenosis. Mitral Valve * Mildly thickened mitral valve leaflets. * No mitral stenosis. * No mitral regurgitation. Tricuspid Valve * Normal tricuspid valve structure and function. * Trace tricuspid regurgitation. * No evidence of pulmonary hypertension. Pulmonic Valve * Pulmonic valve is not well visualized. Aorta * Normally sized aortic root. Pericardium * The pericardium appears normal. IVC * Normal IVC dimensions and inspiratory collapse. Pulmonary Artery * Normal visualized portions of the main pulmonary artery. Neck CTA 06/11/17 09:00 IMPRESSION: 1. Approximately 65% stenosis near the origin of the right internal carotid artery with heavy calcification. 2. Mild disease in the left carotid system with no hemodynamic stenosis. 3. Widely patent vertebrobasilar system. D/ / 06/11/2017 10:30:34 Lea Brenner MD / earnold Interpreting Provider: Lea Brenner MD - Attending Attestation I conducted a face to face diagnostic evaluation of this patient and my medical decision-making was reviewed with the Resident Physician, Dr Fanny Ayers. I agree with the documented findings, disposition and treatment plan as described except to the extent set forth below: She appears fidgety, no acute distress. Heart is regular tachycardic with normal S1 and S2. Plan: We will also check TSH. Consult oncology for evaluation of newly found liver lesion with lung nodules and thyroid nodule. All listed medical problems are new to me today. Sukumar Barksdale MD
--- NOTE | 2017-06-11 11:45 | Electrocardiograph Report ---
[place] [id number] Test Date: 2017-06-10 Pat Name: Neda Cardona Department: [id number] Room: 3B21 Gender: F Functional Support Analyst: LIEN : 1940 Requested By: Giana Watson Order Number: [id number] Reading MD: Bridger Irving DO Measurements Intervals [place] Rate: 70 P: 74 NV: 195 QRS: -31 QRSD: 124 T: 27 QT: 409 QTc: 430 Interpretive Statements SINUS RHYTHM WITH OCCASIONAL SUPRAVENTRICULAR PREMATURE COMPLEXES LEFT AXIS DEVIATION RIGHT BUNDLE BRANCH BLOCK Electronically Signed On 06-11-2017 11:44:04 EST by Bridger Irving DO
--- NOTE | 2017-06-11 14:11 | Vascular/Endovasc Consult Note ---
<Romi Lee - Last Filed: 06/11/17 17:30> Date of Encounter: 06/11/17 Time of Encounter: 11:20 Assessment and Plan (1) Syncope Current Visit: Yes Status: Acute 06/10/17 * CT head--no acute infarct, no acute intracranial abnormalities, chronic small vessel disease * Carotid duplex--Rt bifurcation has critical 80-99% and Lt mid-ICA has severe, 60-79% * Echocardiogram--LVEF > 70%, mild LV diastolic dysfunction, mild dynamic gradient across LVOT, no significant valvular dysfunctions, no aortic stenosis * Chest CTA--no pulmonary artery emboli 06/11/17 * Neck CTA--1) approx 65% stenosis near Rt internal carotid artery origin with heavy calcification. 2) Mild disease in Lt carotid system with no hemodynamic stenosis. 3) patent vertebrobasilar system Plan: Based on the above findings, we do not recommend further inpatient intervention at this time from a vascular surgery standpoint Carotid artery etiology for syncope is less likely given inconsistent findings between carotid duplex and neck CTA degree of stenosis Recommend further outpatient evaluation with Dr. Ann Qualifiers: Syncope type: unspecified Qualified Code(s): R55 - Syncope and collapse (2) Carotid artery narrowing Current Visit: Yes Status: Acute -Carotid duplex 06/10/17--Rt bifurcation has critical 80-99% and Lt mid-ICA has severe, 60-79% -Neck CTA 06/11/17--1) approx 65% stenosis near Rt internal carotid artery origin with heavy calcification. 2) Mild disease in Lt carotid system with no hemodynamic stenosis. 3) patent vertebrobasilar system Plan: Results of these two tests do not agree on extent of stenosis in either carotid Recommend carotid arteriogram as outpatient with Dr. Ann Qualifiers: Laterality: bilateral Qualified Code(s): I65.23 - Occlusion and stenosis of bilateral carotid arteries - History of Present Illness Consult date: 06/11/17 Consult reason: carotid stenosis Chief complaint: syncope History of present illness: Ms. Cardona is a 77 year old female with h/o HTN, HLD, DM, COPD, schizophrenia who was admitted for work-up of syncope. Patient was seen and examined at bedside today, her son is present in the room. Unfortunately patient and son are not good historians, which limits extent and detail of history and ROS. Majority of hx gathered from existing documentation. Patient lives with her son , who reported to have found her passed out on the couch in what sounds like a seated, hunched-forward position. Patient's son called EMS because he felt his mother wasn't acting right, although at the time she said she felt fine. Patient 's son states he was too panicked to notice much else, denies any seizure-like activity. Patient denies having blacked out. Past Med Surg Social Fam HX - Past Medical History Medical history: COPD, diabetes, hyperlipidemia, hypertension, other Psychiatric history: anxiety, depression, schizophrenia - Past Surgical History Surgical History: no surgical history, non-contributory - Social History Smoking Status: Never smoker Smokeless Tobacco Status: No Alcohol use: none Drug use: none Medications and Allergies Albuterol Sulfate [Proair Hfa] 2 puff IH Q4H 06/25/16 [History] Amlodipine Besylate 10 mg PO DAILY 06/25/16 [History] Aspirin [Lo-Dose Aspirin EC] 81 mg PO DAILY 06/25/16 [History] Atorvastatin Calcium [Lipitor] 20 mg PO DAILY 06/25/16 [History] Citalopram Hydrobromide [Citalopram HBr] 20 mg PO DAILY 06/25/16 [History] [place]-3/Dha/Epa/Fish Oil [Fish Oil 1,000 mg Softgel] 3,000 mg PO DAILY 06/25/16 [History] Propranolol HCl 60 mg PO BID 06/25/16 [History] Ziprasidone HCl [Geodon] 120 mg PO HS 06/25/16 [History] Albuterol Sulfate [Albuterol Inhaler] 2 puff IH Q4HR PRN #1 [email or web address] 05/18/17 [Rx] Benztropine [Cogentin] 0.5 mg PO BID 06/10/17 [History] Glimepiride [Amaryl] 4 mg PO DAILY 06/10/17 [History] Latanoprost [Xalatan] 1 drop BOTH EYES HS 06/10/17 [History] 3 Allergy/AdvReac Type Severity Reaction Status Date / Time Sulfa (Sulfonamide Allergy Hives Verified 05/18/17 03:15 Antibiotics) sulfacetamide Allergy Hives Verified 05/18/17 03:15 [From Sulfacet-R] sulfur [From Sulfacet-R] Allergy Hives Verified 05/18/17 03:15 ROS unobtainable: due to mental status All Systems Review: A 10-system review of systems was performed and is negative for pertinent findings except as documented above in the HPI. Exam Vital signs noted General: Present: Conversant, No Apparent Distress, Well developed, Well nourished HEENT: Present: Atraumatic, Normocephaly, Pupils equal Neck: Present: Other (difficult to assess for carotid bruits d/t poor cooperation) Cardiac: Present: Reg Rate and Rhythm, Normal S1 and S2 Lungs: Present: Normal Breath Sounds (difficult to assess d/t poor cooperation) Neuro: Present: Alert and responsive Vascular: Present: Other (difficult to assess for carotid bruits d/t poor cooperation). Absent: Edema Skin: Present: No rashes noted on visualized skin Consult Discharge Plan - Plan Additional Instructions: You need to follow-up with your primary care physician and your mental health physician to talk about your recent weight loss and your medications. They may need to stop certain medications or adjust the dose. Referrals: Aleida Charles CNP [Partnered Physician] - 06/14/17 11:00 am (PLEASE TAKE YOUR NEW PATIENT PACKET WITH YOU FILLED OUT TO YOUR APPOINTMENT. SHOW UP 30 MINS EARLY. TAKE PICTURE ID, INS.CARDS, ALL MEDICATIONS IN THE BOTTLES. IF YOU NEED TO CANCEL YOUR APPOINTMENT PLEASE CALL [phone] WITHIN 24 HOURS OF YOUR APPOINTMENT) <Jose Francisco Mejia - Last Filed: 06/12/17 02:41> Date of Encounter: 06/11/17 - History of Present Illness History of present illness: Ms. Cardona is a 77 year old female All Systems Review: A 10-system review of systems was performed and is negative for pertinent findings except as documented above in the HPI. - Attending Attestation I examined this patient and my medical decision-making was reviewed with the Resident Physician. I agree with the documented findings, disposition and treatment plan as described except to the extent set forth below. The patient was seen and evaluated with the resident. Patient has significant schizophrenia and gives no history of focal motor neurologic deficit. She had a very soft history for syncope. She was found by family member and somewhat confused. She had evaluation by carotid duplex that demonstrated 80-99% stenosis on the right internal carotid artery, however, a follow-up CTA of the neck failed to demonstrate a critical stenosis. There was evidence of heavy calcification in the area of the right internal carotid artery bifurcation. I personally reviewed the films and I agreed that there does not appear to be critical stenosis of the right internal carotid artery. The CT of the head fails to demonstrate acute infarct. Since the duplex scan and the CTA give conflicting information, I have recommended the patient follow up with Dr. Ann for possible carotid arteriogram. Jose Francisco Mejia MD FACS
[2017-06-11] MEDS ORDERED: *HR* LORazepam 0.5 MG TABLET PO PRN (17:57)
[2017-06-11] MEDS: ZIPRASIDONE PO SCH (20:16)
[2017-06-12 06:41] LABS: Basophils % 0.5 %; Eosinophils # 0.1 K/mcL (0.0-0.6); Eosinophils % 2.3 %; Hematocrit 28.9 % (35.3-44.9); Hemoglobin 9.8 g/dL (11.5-15.4); Immature Granulocytes % 0.2 % (0-4); Lymphocytes # 1.1 K/mcL (0.6-4.6); Lymphocytes % 25.1 %; Mean Corpuscular HGB Conc 33.9 g/dL (31.6-35.5); Mean Corpuscular Hemoglobin 31.2 pg (28.0-33.3); Mean Platelet Volume 9.5 fL (9.4-12.4); Monocytes # 0.6 K/mcL (0.0-1.3); Monocytes % 13.4 %; Neutrophils # 2.5 K/mcL (1.6-8.9); Platelet Count 177 K/mcL (140-400); Red Blood Count 3.14 M/mcL (3.82-4.97); Segmented Neutrophils % 58.5 %
[2017-06-12 06:59] LABS: BUN/Creatinine Ratio 13 (6-26); Blood Urea Nitrogen 10 mg/dL (8-23); Calcium 9.2 mg/dL (8.6-10.3); Carbon Dioxide 28 mEq/L (23-29); Chloride 101 mEq/L (98-107); Glucose 88 mg/dL (70-105); Magnesium 1.5 mg/dL (1.6-2.6); Osmolality,Calculated 278 (280-300); Phosphorous 2.4 mg/dL (2.7-4.5); Potassium 3.7 mEq/L (3.5-5.1); Sodium 135 mEq/L (136-145); eGFR For African Americans > 60 (> 60); eGFR For Non-African Americans > 60 (> 60)
[2017-06-12 07:59] LABS: Thyroid Stimulating Hormone 1.576 mcIU/mL (0.340-5.600)
[2017-06-12] MEDS: Aspirin Enteric Coated 81 MG Tablet PO SCH (08:14)
--- NOTE | 2017-06-12 08:31 | Vascular/Endovas Progress Note ---
Date of Encounter: 06/12/17 Time of Encounter: 07:00 - Assessment and plan (1) Syncope Current Visit: Yes Status: Acute 06/10/17 * CT head--no acute infarct, no acute intracranial abnormalities, chronic small vessel disease * Carotid duplex--Rt bifurcation has critical 80-99% and Lt mid-ICA has severe, 60-79% * Echocardiogram--LVEF > 70%, mild LV diastolic dysfunction, mild dynamic gradient across LVOT, no significant valvular dysfunctions, no aortic stenosis * Chest CTA--no pulmonary artery emboli 06/11/17 * Neck CTA--1) approx 65% stenosis near Rt internal carotid artery origin with heavy calcification. 2) Mild disease in Lt carotid system with no hemodynamic stenosis. 3) patent vertebrobasilar system No further episodes of syncope reported Plan: Recommendations unchanged Based on the above findings, we do not recommend further inpatient intervention at this time from a vascular surgery standpoint Carotid artery etiology for syncope is less likely given inconsistent findings between carotid duplex and neck CTA degree of stenosis Recommend further outpatient evaluation with Dr. Ann #[id number]. The patient was seen and evaluated with rest morning rounds. She has no focal motor neurologic deficit. Jennes undergoing further testing today. I recommended carotid arteriogram to further delineate the carotid arterial disease. Further operative planning will be based on these findings. This can be done as an outpatient. Qualifiers: Syncope type: unspecified Qualified Code(s): R55 - Syncope and collapse (2) Carotid artery narrowing Current Visit: Yes Status: Acute -Carotid duplex 06/10/17--Rt bifurcation has critical 80-99% and Lt mid-ICA has severe, 60-79% -Neck CTA 06/11/17--1) approx 65% stenosis near Rt internal carotid artery origin with heavy calcification. 2) Mild disease in Lt carotid system with no hemodynamic stenosis. 3) patent vertebrobasilar system -No focal neuro deficits and no further episodes of syncope Plan: No changes to recommendations Results of these two tests do not agree on extent of stenosis in either carotid Recommend carotid arteriogram as outpatient with Dr. Ann Qualifiers: Laterality: bilateral Qualified Code(s): I65.23 - Occlusion and stenosis of bilateral carotid arteries - Subjective Interval history: Seen and examined this morning at bedside, patient is awake and lying in bed. No family/visitors present in room at this time. Patient is no acute distress. Due to patient's mental status, complete ROS couldn't be obtained--she denies chest pain, pain anywhere else, fevers, chills. Vital Signs, Last 4 Hours Temp Pulse Resp BP Pulse Ox 06/12/17 07:03 97.5 F L 105 16 155/78 95 - Physical Examination General: Present: No Apparent Distress, Well developed, Well nourished HEENT: Present: Atraumatic, Normocephaly Cardiac: Present: Normal S1 and S2, Other (tachycardia HR 105; regular rhythm). Absent: No Murmur Lungs: Present: Normal Breath Sounds Neuro: Present: Alert and responsive, No focal deficits noted Vascular: Absent: Bruit, Cyanosis, Edema Skin: Present: No rashes noted on visualized skin Results 06/12/17 05:08 06/12/17 05:08 Lab Results, Last 24 hours 06/12/17 06/12/17 05:08 05:08 WBC 4.3 Hgb 9.8 L Hct 28.9 L Plt Count 177 Sodium 135 L Potassium 3.7 Chloride 101 Carbon Dioxide 28 BUN 10 Creatinine 0.78 Glucose 88 Calcium 9.2 Magnesium 1.5 L TSH 1.576 Consult Discharge Plan - Plan Additional Instructions: You need to follow-up with your primary care physician and your mental health physician to talk about your recent weight loss and your medications. They may need to stop certain medications or adjust the dose. Referrals: Aleida Charles CNP [Partnered Physician] - 06/14/17 11:00 am (PLEASE TAKE YOUR NEW PATIENT PACKET WITH YOU FILLED OUT TO YOUR APPOINTMENT. SHOW UP 30 MINS EARLY. TAKE PICTURE ID, INS.CARDS, ALL MEDICATIONS IN THE BOTTLES. IF YOU NEED TO CANCEL YOUR APPOINTMENT PLEASE CALL [phone] WITHIN 24 HOURS OF YOUR APPOINTMENT)
--- NOTE | 2017-06-12 09:46 | IR Consult Note ---
Date of Encounter: 06/12/17 Time of Encounter: 09:30 Assessment and Plan (1) Lesion of liver Current Visit: Yes Status: Acute Referred for biopsy of liver lesion seen CTA chest. The lesion has been incompletely imaged but has appearance of cysts. Recommend MRI liver prior to any intervention because of these are cysts then no indication to biopsy. Physicians: Sukumar Barksdale MD Consult Comment: Thank you for the consult. Call [facility] with questions or concerns. Past Med Surg Social Fam HX - Past Medical History Medical history: COPD, diabetes, hyperlipidemia, hypertension, other Psychiatric history: anxiety, depression, schizophrenia - Past Surgical History Surgical History: no surgical history, non-contributory - Social History Smoking Status: Never smoker Smokeless Tobacco Status: No Alcohol use: none Drug use: none Medications and Allergies Albuterol Sulfate [Proair Hfa] 2 puff IH Q4H 06/25/16 [History] Amlodipine Besylate 10 mg PO DAILY 06/25/16 [History] Aspirin [Lo-Dose Aspirin EC] 81 mg PO DAILY 06/25/16 [History] Atorvastatin Calcium [Lipitor] 20 mg PO DAILY 06/25/16 [History] Citalopram Hydrobromide [Citalopram HBr] 20 mg PO DAILY 06/25/16 [History] [place]-3/Dha/Epa/Fish Oil [Fish Oil 1,000 mg Softgel] 3,000 mg PO DAILY 06/25/16 [History] Propranolol HCl 60 mg PO BID 06/25/16 [History] Ziprasidone HCl [Geodon] 120 mg PO HS 06/25/16 [History] Albuterol Sulfate [Albuterol Inhaler] 2 puff IH Q4HR PRN #1 hfa.aer.ad 05/18/17 [Rx] Benztropine [Cogentin] 0.5 mg PO BID 06/10/17 [History] Glimepiride [Amaryl] 4 mg PO DAILY 06/10/17 [History] Latanoprost [Xalatan] 1 drop BOTH EYES HS 06/10/17 [History] 3 Allergy/AdvReac Type Severity Reaction Status Date / Time Sulfa (Sulfonamide Allergy Hives Verified 05/18/17 03:15 Antibiotics) sulfacetamide Allergy Hives Verified 05/18/17 03:15 [From Sulfacet-R] sulfur [From Sulfacet-R] Allergy Hives Verified 05/18/17 03:15 Exam Vital Signs, Last 4 Hours Temp Pulse Resp BP Pulse Ox 06/12/17 07:03 97.5 F L 105 16 155/78 95 Results Reviewed 06/12/17 05:08 06/12/17 05:08 Lab Results 06/12/17 06/12/17 06/11/17 05:08 05:08 04:56 WBC 4.3 RBC 3.14 L Hgb 9.8 L Hct 28.9 L MCV 92.0 MCH 31.2 MCHC 33.9 RDW 14.0 Plt Count 177 MPV 9.5 Reticulocyte # Neutrophils # 2.5 Lymphocytes # 1.1 Monocytes # 0.6 Eosinophils # 0.1 Basophils # 0.0 Sodium 135 L 136 Potassium 3.7 3.6 Chloride 101 104 Carbon Dioxide 28 25 BUN 10 15 Creatinine 0.78 0.84 Est GFR ( Amer) > 60 > 60 Est GFR (Non-Af Amer) > 60 > 60 BUN/Creatinine Ratio 13 18 Glucose 88 88 Calcium 9.2 8.9 Phosphorus 2.4 L Magnesium 1.5 L 1.4 L 06/11/17 06/10/17 04:56 04:38 WBC 5.0 RBC 3.07 L Hgb 9.6 L Hct 28.4 L MCV 92.5 MCH 31.3 MCHC 33.8 RDW 14.2 Plt Count 173 MPV 9.3 L Reticulocyte # 0.03 L Neutrophils # 2.8 Lymphocytes # 1.5 Monocytes # 0.6 Eosinophils # 0.1 Basophils # 0.0 Sodium Potassium Chloride Carbon Dioxide BUN Creatinine Est GFR ( Amer) Est GFR (Non-Af Amer) BUN/Creatinine Ratio Glucose Calcium Phosphorus Magnesium Consult Discharge Plan - Plan Additional Instructions: You need to follow-up with your primary care physician and your mental health physician to talk about your recent weight loss and your medications. They may need to stop certain medications or adjust the dose. Referrals: Aleida Charles CNP [Partnered Physician] - 06/14/17 11:00 am (PLEASE TAKE YOUR NEW PATIENT PACKET WITH YOU FILLED OUT TO YOUR APPOINTMENT. SHOW UP 30 MINS EARLY. TAKE PICTURE ID, INS.CARDS, ALL MEDICATIONS IN THE BOTTLES. IF YOU NEED TO CANCEL YOUR APPOINTMENT PLEASE CALL [phone] WITHIN 24 HOURS OF YOUR APPOINTMENT)
--- NOTE | 2017-06-12 10:32 | Discharge Summary ---
<Dilan Valadez - Last Filed: 06/12/17 15:36> Date of Encounter: 06/12/17 Time of Encounter: 10:30 - Discharge Diagnosis (1) Syncope Priority: Primary Status: Acute Qualifiers: Syncope type: unspecified Qualified Code(s): R55 - Syncope and collapse (2) Anemia Priority: Secondary Status: Acute Qualifiers: Anemia type: other cause Other causes of anemia: chronic disease, other Qualified Code(s): D63.8 - Anemia in other chronic diseases classified elsewhere (3) HTN (hypertension), benign Priority: Secondary Status: Acute (4) Carotid artery narrowing Priority: Secondary Status: Acute Qualifiers: Laterality: bilateral Qualified Code(s): I65.23 - Occlusion and stenosis of bilateral carotid arteries (5) Lesion of liver Priority: Secondary Status: Acute (6) Abnormal finding on lung imaging Priority: Secondary Status: Acute (7) Solitary nodule of right lobe of thyroid Priority: Secondary Status: Acute - Discharge Medications Home Medications: Albuterol Sulfate [Proair Hfa] 2 puff IH Q4H 06/25/16 [History] Amlodipine Besylate 10 mg PO DAILY 06/25/16 [History] Aspirin [Lo-Dose Aspirin EC] 81 mg PO DAILY 06/25/16 [History] Atorvastatin Calcium [Lipitor] 20 mg PO DAILY 06/25/16 [History] Citalopram Hydrobromide [Citalopram HBr] 20 mg PO DAILY 06/25/16 [History] [place]-3/Dha/Epa/Fish Oil [Fish Oil 1,000 mg Softgel] 3,000 mg PO DAILY 06/25/16 [History] Ziprasidone HCl [Geodon] 120 mg PO HS 06/25/16 [History] Albuterol Sulfate [Albuterol Inhaler] 2 puff IH Q4HR PRN #1 hfa.aer.ad 05/18/17 [Rx] Benztropine [Cogentin] 0.5 mg PO BID 06/10/17 [History] Latanoprost [Xalatan] 1 drop BOTH EYES HS 06/10/17 [History] Allergies/Adverse Reactions: 3 Allergy/AdvReac Type Severity Reaction Status Date / Time Sulfa (Sulfonamide Allergy Hives Verified 05/18/17 03:15 Antibiotics) sulfacetamide Allergy Hives Verified 05/18/17 03:15 [From Sulfacet-R] sulfur [From Sulfacet-R] Allergy Hives Verified 05/18/17 03:15 Procedures/tests Complete & Pending: Procedures Performed prior 72 hours Category Date Time Status CTA Neck [CT angio neck] [CT] Routine Cat Scan 06/11/17 09:00 Completed CTA chest [CT angio chest] [CT] Routine Cat Scan 06/10/17 11:37 Completed EV carotid duplex imaging BI Routine Y 06/10/17 11:38 Completed EV echocardiogram Routine Y 06/10/17 11:37 Completed Date of admission: 06/10/17 02:38 Primary care physician: PCP NONE Consults: 06/10/17 02:54 Consult to Occupational Therapy [CONS] Routine Comment: Evaluate, develop and implement POC Reason for Consult: ambulate and assess Consult to Physical Therapy [CONS] Routine Comment: Evaluate, develop and implement POC Reason for Consult: ambulate assess for placement need 06/10/17 03:52 Consult to Nutrition [CONS] Routine Comment: Consulting Provider: NUTRITION Reason for Dietary Consult: MST Score Consult to Chemical Weigher [CONS] Routine Reason for SW Consult: lives with son possible home health 06/11/17 08:30 Consult to Vascular Surgery [CONS] Routine Consulting Provider: Vascular Surgery Karen Reason for Consult: carotid stenosis; hx of syncope Time Notified: 08:31 Call Completed: Yes Discharging clinician: Dilan Valadez Anticipated date of discharge: 06/12/17 - Patient Status Disposition: Home Health Service Condition: Fair Functional capacity at discharge: independent ambulation Overall status at discharge: patient is progressing back to baseline - Discharge Instructions Follow Up With: Aleida Charles CNP [Partnered Physician] - 06/14/17 11:00 am (PLEASE TAKE YOUR NEW PATIENT PACKET WITH YOU FILLED OUT TO YOUR APPOINTMENT. SHOW UP 30 MINS EARLY. TAKE PICTURE ID, INS.CARDS, ALL MEDICATIONS IN THE BOTTLES. IF YOU NEED TO CANCEL YOUR APPOINTMENT PLEASE CALL [phone] WITHIN 24 HOURS OF YOUR APPOINTMENT) Additional Instructions: You need to follow-up with your primary care physician and your mental health physician to talk about your recent weight loss and your medications. They may need to stop certain medications or adjust the dose. - Diet and Activity Activity: increase activity as tolerated Diet: advance to your usual diet Hospital course: Ms. Cardona is a 77 year old female who presented to the emergency department with an episode of syncope. She does have schizophrenia but lives with her adult son who confirmed seeing her mother passed out on the couch. Initial head CT was negative other than chronic small vessel disease and chronic sinusitis. A d-dimer was obtained in the ER and was 900, so a follow-up CTA was ordered and ruled out a PE. However, it did show multiple cystic lesions in the liver as well as groundglass opacities in the lungs bilaterally. Echocardiogram was unremarkable but her carotid arteries were found to be stenotic bilaterally. Follow-up neck CTA did demonstrate 65% stenosis near the origin of the right internal carotid artery in addition to a 1 cm cyst in the right thyroid nodule. Vascular surgery was consulted for possible intervention of her carotid however elected for outpatient management as the stenosis was not critical. Her A1c was checked and was 4.9, suggesting that she may have had some episodes of hypoglycemia predisposing her syncopal episodes. She does take glyburide at home and was informed to stop this. She also is on multiple blood pressure medications and hypotension may have also predispose her events, so propanolol was discontinued as well. This morning, patient is with her son at bedside and has no complaints this morning, and is ready to go home. She does live with her son as stated above but son says that he would appreciate additional help upon discharge. PT and OT evaluate patient upon initial presentation and stated that she did not need additional services, but social services designee did see the patient prior to discharge and will set her up with home health. She will need follow up imaging within 3 months to monitor both her thyroid and liver lesions that were found on CT. - Time Spent with Patient Total time spent providing and/or coordinating discharge services: Greater than 30 minutes - Constitutional Vitals: Temp Pulse Resp BP Pulse Ox 97.5 F L 105 16 155/78 95 06/12/17 07:03 06/12/17 07:03 06/12/17 07:03 06/12/17 07:03 06/12/17 07:03 General appearance: Present: cooperative, no acute distress, answers questions appropriately (pressured speech, but appears to be her baseline) - Head Head exam: Present: atraumatic, normocephalic - Eye Eye exam: Present: PERRL, conjuntiva pink, sclera anicteric - Neck Neck exam general surgery: Present: supple, trachea midline. Absent: lymphadenopathy - Respiratory Respiratory exam: Present: CTAB. Absent: accessory muscle use, rales, rhonchi, wheezes - Cardiovascular Cardiovascular exam: Present: RRR, +S1, +S2. Absent: diastolic murmur, gallop, rubs, systolic murmur - GI/Abdominal GI/Abdominal exam: Present: normal bowel sounds, soft, no peritoneal signs. Absent: distended, tenderness - Extremities Exam Extremities exam: Present: warm, radial pulses palpable and symmetrical. Absent : calf tenderness, cyanotic, pedal edema - Neurological Exam Neurological exam: Present: alert, no focal deficits. Absent: facial droop, speech deficit - Skin Skin exam: Present: dry, intact <Sukumar Barksdale - Last Filed: 06/12/17 18:35> Date of Encounter: 06/12/17 Procedures/tests Complete & Pending: Procedures Performed prior 72 hours Category Date Time Status CTA Neck [CT angio neck] [CT] Routine Cat Scan 06/11/17 09:00 Completed CTA chest [CT angio chest] [CT] Routine Cat Scan 06/10/17 11:37 Completed EV carotid duplex imaging BI Routine Y 06/10/17 11:38 Completed EV echocardiogram Routine Y 06/10/17 11:37 Completed Date of admission: 06/10/17 02:38 Primary care physician: PCP NONE Consults: 06/10/17 02:54 Consult to Occupational Therapy [CONS] Routine Comment: Evaluate, develop and implement POC Reason for Consult: ambulate and assess Consult to Physical Therapy [CONS] Routine Comment: Evaluate, develop and implement POC Reason for Consult: ambulate assess for placement need 06/10/17 03:52 Consult to Nutrition [CONS] Routine Comment: Consulting Provider: NUTRITION Reason for Dietary Consult: MST Score Consult to Chemical Weigher [CONS] Routine Reason for SW Consult: lives with son possible home health 06/11/17 08:30 Consult to Vascular Surgery [CONS] Routine Consulting Provider: Vascular Surgery Karen Reason for Consult: carotid stenosis; hx of syncope Time Notified: 08:31 Call Completed: Yes Hospital course: Ms. Cardona is a 77 year old female - Time Spent with Patient Total time spent providing and/or coordinating discharge services: - Constitutional Vitals: Temp Pulse Resp BP Pulse Ox 97.2 F L 110 16 138/83 96 06/12/17 10:47 06/12/17 10:47 06/12/17 10:47 06/12/17 10:47 06/12/17 10:47 - Attending Attestation I conducted a face to face diagnostic evaluation of this patient and my medical decision-making was reviewed with the Resident Physician, Dr Dilan Valdaez. I agree with the documented findings, disposition and treatment plan as described except to the extent set forth below: Patient will need a follow-up thyroid ultrasound and liver imaging with ultrasound or CT in 3 months for follow-up of thyroid nodule and liver mass. Patient will also need a follow-up CT of the chest to document resolution of current findings. Sukumar Barksdale MD
[2017-06-12 10:48] VITALS: BP 138/83
--- NOTE | 2017-06-12 14:00 | Physician Discharge Referral ---
Home Health/Hosp Referral Info Transfer to: Home Health Attending Provider: Dr. Barksdale Provider in Charge Post Discharge: PCP - Diagnosis (1) Syncope Priority: Primary Status: Acute (2) Anemia Priority: Secondary Status: Acute (3) HTN (hypertension), benign Priority: Secondary Status: Acute (4) Carotid artery narrowing Priority: Secondary Status: Acute (5) Lesion of liver Priority: Secondary Status: Acute (6) Abnormal finding on lung imaging Priority: Secondary Status: Acute (7) Solitary nodule of right lobe of thyroid Priority: Secondary Status: Acute - Respiratory Orders Smoking Cessation: Smoking cessation has been advised. For more information, call the [place] Tobacco Quit Line at 6-295-MGPS-NOW. - Diet/Nutrition Diet/Nutrition Orders: No Added Salt (JACOB) - Activity Activity Orders: Ambulate - Services Needed Following services are medically necessary services: Home Health Aide - Transfer Medications Home Medications: Albuterol Sulfate [Proair Hfa] 2 puff IH Q4H 06/25/16 [History] Amlodipine Besylate 10 mg PO DAILY 06/25/16 [History] Aspirin [Lo-Dose Aspirin EC] 81 mg PO DAILY 06/25/16 [History] Atorvastatin Calcium [Lipitor] 20 mg PO DAILY 06/25/16 [History] Citalopram Hydrobromide [Citalopram HBr] 20 mg PO DAILY 06/25/16 [History] [place]-3/Dha/Epa/Fish Oil [Fish Oil 1,000 mg Softgel] 3,000 mg PO DAILY 06/25/16 [History] Ziprasidone HCl [Geodon] 120 mg PO HS 06/25/16 [History] Albuterol Sulfate [Albuterol Inhaler] 2 puff IH Q4HR PRN #1 hfa.aer.ad 05/18/17 [Rx] Benztropine [Cogentin] 0.5 mg PO BID 06/10/17 [History] Latanoprost [Xalatan] 1 drop BOTH EYES HS 06/10/17 [History] Allergies/Adverse Reactions: 3 Allergy/AdvReac Type Severity Reaction Status Date / Time Sulfa (Sulfonamide Allergy Hives Verified 05/18/17 03:15 Antibiotics) sulfacetamide Allergy Hives Verified 05/18/17 03:15 [From Sulfacet-R] sulfur [From Sulfacet-R] Allergy Hives Verified 05/18/17 03:15 Certification: Further, I certify that my clinical findings support that this patient is homebound (i.e. absences from home require considerable and taxing effort and are for medical reasons or moravian services or infrequently or short duration when for other reasons) because: Homebound Reason: Patient requires assistance of a person or device to safely leave home Attestation: My signature below is to certify that this patient is under my care and that I, or nurse practitioner, or a physician's assistant professor in family studies working with me, has a face-to -face encounter with this patient.
== END 2017-06-12 15:36 | disposition home health service (06) ==
LOC: EMEROO 23:56 → 2NNU 23:56 → SUATTDRO 06-10 02:38 → 2NNU 06-10 03:21 → 3BNU 06-11 10:07
PROVIDERS: ADMIT Internal Medicine; ATTEND Internal Medicine

== ENCOUNTER 2020-02-20 12:46 | Inpatient (IN) ==
[2020-02-20 13:47] LABS: Basophils % 0.2 %; Hematocrit 37.5 % (35.3-44.9); Hemoglobin 13.2 g/dL (11.5-15.4); Immature Granulocytes % 0.5 % (0-4); Lymphocytes # 2.1 K/mcL (0.6-4.6); Lymphocytes % 14.5 %; Mean Corpuscular HGB Conc 35.2 g/dL (31.6-35.5); Mean Corpuscular Hemoglobin 32.4 pg (28.0-33.3); Mean Corpuscular Volume 91.9 fL (83.0-100.0); Mean Platelet Volume 10.1 fL (9.4-12.4); Monocytes # 1.6 K/mcL (0.0-1.3); Monocytes % 10.8 %; Neutrophils # 10.8 K/mcL (1.6-8.9); Platelet Count 217 K/mcL (140-400); Red Blood Count 4.08 M/mcL (3.82-4.97); Red Cell Distribution Width 13.2 % (11.5-14.5); White Blood Count 14.6 K/mcL (4.3-11.1)
[2020-02-20 14:10] LABS: Alanine Aminotransferase 16 Units/L (7-52); Albumin 4.1 g/dL (3.5-5.7); Albumin/Globulin Ratio 1.7 (1.1-2.2); Alkaline Phosphatase 85 Units/L (34-104); Aspartate Amino Transferase 36 Units/L (13-39); BUN/Creatinine Ratio 16 (6-26); Bilirubin,Direct 0.2 mg/dL (0.0-0.2); Bilirubin,Total 1.2 mg/dL (0.3-1.0); Blood Urea Nitrogen 16 mg/dL (8-23); Carbon Dioxide 22 mEq/L (23-29); Chloride 102 mEq/L (98-107); Creatine Kinase 1490 Units/L (30-223); Globulin 2.4 g/dL (2.4-3.5); Glucose 109 mg/dL (70-105); Magnesium 1.6 mg/dL (1.6-2.6); Osmolality,Calculated 284 (280-300); Potassium 3.7 mEq/L (3.5-5.1); Sodium 136 mEq/L (136-145); Total Protein 6.5 g/dL (6.4-8.9); eGFR For African Americans > 60 (> 60); eGFR For Non-African Americans 53 (> 60)
[2020-02-20 14:15] LABS: Bacteria,Urine Moderate per hpf (None-Few); Bilirubin,Urine Negative (Negative); Blood,Urine Moderate (Negative); Clarity,Urine Clear (Clear); Color,Urine Light-Yellow (Yellow); Glucose,Urine (UA) Normal (Normal); Ketones,Urine Trace mg/dL (Negative); Leukocyte Esterase,Urine Negative (Negative); Mucus,Urine Few per lpf (None-Few); Nitrite,Urine Negative (Negative); Protein,Urine 100 mg/dL (Neg-Trace); RBC,Urine 0-3 per hpf (0-3); Specific Gravity,Urine 1.012 (1.010-1.025); Urobilinogen,Urine Normal (Normal); WBC,Urine 0-3 per hpf (0-3)
[2020-02-20 14:17] LABS: Troponin I 0.22 ng/mL (< 0.04)
[2020-02-20] MEDS ORDERED: 0.9 % Sodium Chloride 1,000 ML IVC ONE (14:22)
[2020-02-20] MEDS ORDERED: Ondansetron 4 MG/2 ML VIAL IVP PRN (15:32)
[2020-02-20] MEDS ORDERED: Naloxone 0.4 MG/ML INJ IVP PRN (15:32)
[2020-02-20] MEDS ORDERED: *HR* Dextrose 50 % in Water (Vial) 50 ML VIAL IVP PRN (16:33)
[2020-02-20] MEDS ORDERED: D5% in Water 1,000 ML IVC PRN (16:33)
[2020-02-20] MEDS ORDERED: Dextrose Gel 15 GM/37.5 ML TUBE PO PRN ×2 (16:33)
[2020-02-20] MEDS: 0.9 % Sodium Chloride 1,000 ML IVC SCH (17:06)
[2020-02-20] MEDS ORDERED: *HR* Heparin 5,000 UNIT/ML VIAL IVP ONE (18:21)
[2020-02-20] MEDS ORDERED: *HR* Heparin 5,000 UNIT/ML VIAL IVP PRN ×2 (18:21)
[2020-02-20] MEDS ORDERED: Heparin 25,000UNIT/250ML 1/2NS 25,000 UNIT/250 ML IV.SOLN IVC SCH (18:30)
[2020-02-20] MEDS ORDERED: Perflutren Lipid Microsphere 1.3 ML in 0.9 % Sodium Chloride 8.7 ML IVP PRN (18:34)
[2020-02-20 19:12] LABS: Hemoglobin 11.8 g/dL (11.5-15.4); Mean Corpuscular HGB Conc 34.7 g/dL (31.6-35.5); Mean Corpuscular Hemoglobin 31.8 pg (28.0-33.3); Mean Corpuscular Volume 91.6 fL (83.0-100.0); Mean Platelet Volume 9.7 fL (9.4-12.4); Platelet Count 183 K/mcL (140-400); Red Blood Count 3.71 M/mcL (3.82-4.97); Red Cell Distribution Width 13.2 % (11.5-14.5); White Blood Count 10.8 K/mcL (4.3-11.1)
[2020-02-20 19:25] LABS: Heparin anti-factor XA UFH < 0.04 IU/mL (0.30-0.70)
[2020-02-20 19:26] LABS: INR 1.1
[2020-02-20] MEDS: Ziprasidone 20 MG CAPSULE PO SCH (20:00)
[2020-02-20] MEDS: Insulin LISPRO 300 UNITS/3 ML VIAL SQ SCH (20:14)
[2020-02-20] MEDS ORDERED: *HR* Heparin 5,000 UNIT/ML VIAL SQ SCH (22:00)
[2020-02-21] MEDS: 0.9 % Sodium Chloride 1,000 ML IVC SCH ×2 (02:55→17:50)
[2020-02-21 03:34] LABS: Basophils % 0.3 %; Eosinophils # 0.1 K/mcL (0.0-0.6); Eosinophils % 1.2 %; Hematocrit 32.4 % (35.3-44.9); Hemoglobin 10.8 g/dL (11.5-15.4); Immature Granulocytes % 0.3 % (0-4); Lymphocytes # 2.5 K/mcL (0.6-4.6); Lymphocytes % 33.8 %; Mean Corpuscular HGB Conc 33.3 g/dL (31.6-35.5); Mean Corpuscular Volume 95.9 fL (83.0-100.0); Mean Platelet Volume 10.2 fL (9.4-12.4); Monocytes # 0.8 K/mcL (0.0-1.3); Monocytes % 10.3 %; Neutrophils # 4.1 K/mcL (1.6-8.9); Platelet Count 153 K/mcL (140-400); Red Blood Count 3.38 M/mcL (3.82-4.97); Red Cell Distribution Width 13.4 % (11.5-14.5); Segmented Neutrophils % 54.1 %; White Blood Count 7.5 K/mcL (4.3-11.1)
[2020-02-21 03:50] LABS: BUN/Creatinine Ratio 16 (6-26); Blood Urea Nitrogen 15 mg/dL (8-23); Calcium 8.5 mg/dL (8.6-10.3); Carbon Dioxide 24 mEq/L (23-29); Chloride 110 mEq/L (98-107); Glucose 98 mg/dL (70-105); Magnesium 1.6 mg/dL (1.6-2.6); Osmolality,Calculated 293 (280-300); Phosphorous 2.3 mg/dL (2.7-4.5); Potassium 3.2 mEq/L (3.5-5.1); Sodium 141 mEq/L (136-145); eGFR For African Americans > 60 (> 60); eGFR For Non-African Americans 56 (> 60)
[2020-02-21] MEDS: Insulin LISPRO 300 UNITS/3 ML VIAL SQ SCH ×4 (08:10→20:19)
[2020-02-21] MEDS: amLODIPine 5 MG TABLET PO SCH (09:02)
[2020-02-21] MEDS: Cholecalciferol (D-3) 1,000 UNIT (25MCG) TABLET PO SCH (09:02)
[2020-02-21] MEDS: Aspirin Enteric Coated 81 MG Tablet PO SCH (09:02)
[2020-02-21 10:42] LABS: BUN/Creatinine Ratio 13 (6-26); Blood Urea Nitrogen 13 mg/dL (8-23); Calcium 8.2 mg/dL (8.6-10.3); Carbon Dioxide 22 mEq/L (23-29); Chloride 111 mEq/L (98-107); Glucose 109 mg/dL (70-105); Osmolality,Calculated 287 (280-300); Potassium 3.8 mEq/L (3.5-5.1); Sodium 138 mEq/L (136-145); eGFR For African Americans > 60 (> 60); eGFR For Non-African Americans 55 (> 60)
[2020-02-21 10:43] LABS: Albumin 3.3 g/dL (3.5-5.7); Albumin/Globulin Ratio 1.6 (1.1-2.2); Bilirubin,Direct 0.1 mg/dL (0.0-0.2); Bilirubin,Indirect 0.5 mg/dL (0.0-1.0); Bilirubin,Total 0.6 mg/dL (0.3-1.0); Globulin 2.1 g/dL (2.4-3.5); Total Protein 5.4 g/dL (6.4-8.9); Troponin I 0.08 ng/mL (< 0.04)
[2020-02-21 10:54] LABS: Thyroid Stimulating Hormone 1.146 mcIU/mL (0.340-5.600)
[2020-02-21] MEDS: Fluticasone Propionate Nasal 50 MCG/SPRAY BOTTLE NS SCH (12:21)
[2020-02-21] MEDS: Ziprasidone 20 MG CAPSULE PO SCH (20:12)
[2020-02-22] MEDS ORDERED: Acetaminophen 325 MG TABLET PO ONE (03:32)
[2020-02-22] MEDS: 0.9 % Sodium Chloride 1,000 ML IVC SCH ×2 (04:25→14:33)
[2020-02-22] MEDS ORDERED: Regadenoson 0.4 MG/5 ML SYRINGE IVP ONE (06:06)
[2020-02-22 07:15] LABS: Basophils % 0.5 %; Eosinophils # 0.1 K/mcL (0.0-0.6); Eosinophils % 1.7 %; Hematocrit 31.9 % (35.3-44.9); Hemoglobin 10.5 g/dL (11.5-15.4); Immature Granulocytes % 0.5 % (0-4); Lymphocytes # 1.9 K/mcL (0.6-4.6); Lymphocytes % 31.6 %; Mean Corpuscular HGB Conc 32.9 g/dL (31.6-35.5); Mean Corpuscular Hemoglobin 31.3 pg (28.0-33.3); Mean Corpuscular Volume 94.9 fL (83.0-100.0); Monocytes # 0.6 K/mcL (0.0-1.3); Monocytes % 10.5 %; Neutrophils # 3.3 K/mcL (1.6-8.9); Platelet Count 152 K/mcL (140-400); Red Blood Count 3.36 M/mcL (3.82-4.97); Red Cell Distribution Width 13.3 % (11.5-14.5); Segmented Neutrophils % 55.2 %; White Blood Count 5.9 K/mcL (4.3-11.1)
[2020-02-22 07:36] LABS: BUN/Creatinine Ratio 15 (6-26); Blood Urea Nitrogen 12 mg/dL (8-23); Calcium 8.3 mg/dL (8.6-10.3); Carbon Dioxide 23 mEq/L (23-29); Chloride 112 mEq/L (98-107); Creatine Kinase 621 Units/L (30-223); Glucose 94 mg/dL (70-105); Magnesium 1.6 mg/dL (1.6-2.6); Osmolality,Calculated 292 (280-300); Potassium 3.7 mEq/L (3.5-5.1); Sodium 141 mEq/L (136-145); eGFR For African Americans > 60 (> 60); eGFR For Non-African Americans > 60 (> 60)
[2020-02-22] MEDS: Insulin LISPRO 300 UNITS/3 ML VIAL SQ SCH ×3 (07:44→16:51)
[2020-02-22] MEDS: Cholecalciferol (D-3) 1,000 UNIT (25MCG) TABLET PO SCH (08:15)
[2020-02-22] MEDS: Aspirin Enteric Coated 81 MG Tablet PO SCH (08:15)
[2020-02-22] MEDS: amLODIPine 5 MG TABLET PO SCH (08:15)
[2020-02-22] MEDS: Fluticasone Propionate Nasal 50 MCG/SPRAY BOTTLE NS SCH (08:15)
[2020-02-22 11:11] LABS: Estimated Average Glucose 100 mg/dl
[2020-02-22] MEDS ORDERED: Magnesium Oxide 400 MG TABLET PO ONE (14:38)
[2020-02-22] MEDS: *HR* Heparin 5,000 UNIT/ML VIAL SQ SCH (20:06)
[2020-02-22] MEDS: Ziprasidone 20 MG CAPSULE PO SCH (20:06)
[2020-02-23] MEDS: 0.9 % Sodium Chloride 1,000 ML IVC SCH (00:10)
[2020-02-23 02:11] LABS: Basophils % 0.3 %; Eosinophils # 0.1 K/mcL (0.0-0.6); Eosinophils % 2.1 %; Hematocrit 31.4 % (35.3-44.9); Hemoglobin 10.4 g/dL (11.5-15.4); Immature Granulocytes % 0.3 % (0-4); Lymphocytes # 2.3 K/mcL (0.6-4.6); Lymphocytes % 37.9 %; Mean Corpuscular HGB Conc 33.1 g/dL (31.6-35.5); Mean Corpuscular Hemoglobin 31.1 pg (28.0-33.3); Mean Platelet Volume 9.8 fL (9.4-12.4); Monocytes # 0.6 K/mcL (0.0-1.3); Monocytes % 9.8 %; Platelet Count 152 K/mcL (140-400); Red Blood Count 3.34 M/mcL (3.82-4.97); Red Cell Distribution Width 13.5 % (11.5-14.5); Segmented Neutrophils % 49.6 %; White Blood Count 6.1 K/mcL (4.3-11.1)
[2020-02-23 02:31] LABS: BUN/Creatinine Ratio 20 (6-26); Blood Urea Nitrogen 15 mg/dL (8-23); Carbon Dioxide 22 mEq/L (23-29); Chloride 112 mEq/L (98-107); Glucose 96 mg/dL (70-105); Magnesium 1.6 mg/dL (1.6-2.6); Osmolality,Calculated 293 (280-300); Potassium 3.6 mEq/L (3.5-5.1); Sodium 141 mEq/L (136-145); eGFR For African Americans > 60 (> 60); eGFR For Non-African Americans > 60 (> 60)
[2020-02-23] MEDS: *HR* Heparin 5,000 UNIT/ML VIAL SQ SCH ×3 (05:21→21:53)
[2020-02-23] MEDS ORDERED: Regadenoson 0.4 MG/5 ML SYRINGE IVP ONE (06:06)
[2020-02-23] MEDS: Aspirin Enteric Coated 81 MG Tablet PO SCH (10:16)
[2020-02-23] MEDS: Cholecalciferol (D-3) 1,000 UNIT (25MCG) TABLET PO SCH (10:16)
[2020-02-23] MEDS: amLODIPine 5 MG TABLET PO SCH (10:17)
[2020-02-23] MEDS: Fluticasone Propionate Nasal 50 MCG/SPRAY BOTTLE NS SCH (10:18)
[2020-02-23 17:29] LABS: CK-BB (CK isoenzymes) 0 % (0-0); CK-MB (CK isoenzymes) 0 % (0-4); CK-MM (CK-isoenzymes) 100 % (96-100)
[2020-02-23] MEDS: Ziprasidone 20 MG CAPSULE PO SCH (21:52)
[2020-02-23] MEDS ORDERED: Acetaminophen 325 MG TABLET PO PRN (23:55)
[2020-02-24 03:19] LABS: Basophils % 0.6 %; Eosinophils # 0.2 K/mcL (0.0-0.6); Eosinophils % 2.9 %; Hematocrit 33.6 % (35.3-44.9); Hemoglobin 11.7 g/dL (11.5-15.4); Immature Granulocytes % 0.4 % (0-4); Lymphocytes # 2.6 K/mcL (0.6-4.6); Lymphocytes % 37.1 %; Mean Corpuscular HGB Conc 34.8 g/dL (31.6-35.5); Mean Corpuscular Hemoglobin 32.4 pg (28.0-33.3); Mean Corpuscular Volume 93.1 fL (83.0-100.0); Mean Platelet Volume 9.7 fL (9.4-12.4); Monocytes # 0.8 K/mcL (0.0-1.3); Monocytes % 11.2 %; Neutrophils # 3.3 K/mcL (1.6-8.9); Platelet Count 175 K/mcL (140-400); Red Blood Count 3.61 M/mcL (3.82-4.97); Red Cell Distribution Width 13.4 % (11.5-14.5); Segmented Neutrophils % 47.8 %
[2020-02-24 03:39] LABS: % Iron Saturation 28 % (15-50); BUN/Creatinine Ratio 18 (6-26); Blood Urea Nitrogen 13 mg/dL (8-23); Calcium 9.3 mg/dL (8.6-10.3); Carbon Dioxide 23 mEq/L (23-29); Chloride 106 mEq/L (98-107); Creatine Kinase 409 Units/L (30-223); Glucose 98 mg/dL (70-105); Iron 57 mcg/dL (50-170); Magnesium 1.6 mg/dL (1.6-2.6); Osmolality,Calculated 286 (280-300); Potassium 3.4 mEq/L (3.5-5.1); Sodium 138 mEq/L (136-145); Transferrin 145 mg/dL (203-362); eGFR For African Americans > 60 (> 60); eGFR For Non-African Americans > 60 (> 60)
[2020-02-24 03:57] LABS: Ferritin 188 ng/mL (10-120)
[2020-02-24 04:03] LABS: Folate 7.8 ng/mL (3.0-16.0)
[2020-02-24] MEDS: *HR* Heparin 5,000 UNIT/ML VIAL SQ SCH ×2 (05:03→15:10)
[2020-02-24 06:55] LABS: CK Total (Ck Isoenzymes) 1501 U/L (20-180)
[2020-02-24] MEDS: Cholecalciferol (D-3) 1,000 UNIT (25MCG) TABLET PO SCH (08:41)
[2020-02-24] MEDS: Aspirin Enteric Coated 81 MG Tablet PO SCH (08:41)
[2020-02-24] MEDS: Fluticasone Propionate Nasal 50 MCG/SPRAY BOTTLE NS SCH (08:41)
[2020-02-24] MEDS: amLODIPine 5 MG TABLET PO SCH (08:41)
[2020-02-24 11:15] VITALS: BP 145/73
== END 2020-02-24 16:15 | disposition home health service (06) | DRG 557 ==
LOC: 2ANU 12:46 → EMEROOARM 12:46 → SUATTDRO 15:23 → 2ANU 16:25
PROVIDERS: ADMIT Family Medicine; ATTEND Pharmacist

== ENCOUNTER 2021-09-19 17:17 | Inpatient (IN) ==
[2021-09-19 18:55] LABS: Basophils % 0.4 %; Eosinophils # 0.1 K/mcL (0.0-0.6); Eosinophils % 1.3 %; Hematocrit 35.3 % (35.3-44.9); Immature Granulocytes % 0.4 % (0-4); Lymphocytes % 43.9 %; Mean Corpuscular Hemoglobin 30.8 pg (28.0-33.3); Mean Corpuscular Volume 90.5 fL (83.0-100.0); Mean Platelet Volume 10.4 fL (9.4-12.4); Monocytes # 0.6 K/mcL (0.0-1.3); Monocytes % 8.9 %; Neutrophils # 3.1 K/mcL (1.6-8.9); Platelet Count 233 K/mcL (140-400); Red Cell Distribution Width 14.2 % (11.5-14.5); Segmented Neutrophils % 45.1 %; White Blood Count 6.8 K/mcL (4.3-11.1)
[2021-09-19 19:32] LABS: Alanine Aminotransferase 7 Units/L (7-52); Albumin/Globulin Ratio 1.5 (1.1-2.2); Alkaline Phosphatase 77 Units/L (34-104); Aspartate Amino Transferase 10 Units/L (13-39); BUN/Creatinine Ratio 23 (6-26); Bilirubin,Direct 0.1 mg/dL (0.0-0.2); Bilirubin,Indirect 0.6 mg/dL (0.0-1.0); Bilirubin,Total 0.7 mg/dL (0.3-1.0); Blood Urea Nitrogen 19 mg/dL (8-23); Calcium 9.6 mg/dL (8.6-10.3); Carbon Dioxide 21 mEq/L (23-29); Chloride 105 mEq/L (98-107); Ethanol < 10 mg/dL (Less than 10); Globulin 2.6 g/dL (2.4-3.5); Glucose 96 mg/dL (70-105); Magnesium 1.6 mg/dL (1.6-2.6); Osmolality,Calculated 290 (280-300); Sodium 139 mEq/L (136-145); Total Protein 6.6 g/dL (6.4-8.9); eGFR For African Americans > 60 (> 60); eGFR For Non-African Americans > 60 (> 60)
[2021-09-19 19:54] LABS: Bacteria,Urine Moderate per hpf (None-Few); Bilirubin,Urine Negative (Negative); Blood,Urine Negative (Negative); Clarity,Urine Turbid (Clear); Color,Urine Yellow (Yellow); Glucose,Urine (UA) Normal (Normal); Hyaline Casts,Urine Few per lpf (None Seen); Ketones,Urine Trace mg/dL (Negative); Leukocyte Esterase,Urine Moderate (Negative); Mucus,Urine Many per lpf (None-Few); Nitrite,Urine Positive (Negative); Protein,Urine 50 mg/dL (Neg-Trace); RBC,Urine 0-3 per hpf (0-3); Specific Gravity,Urine 1.028 (1.010-1.025); Squamous Epithelial Cell,Urine Few per hpf (None-Few); WBC,Urine 30-50 per hpf (0-3)
[2021-09-19 19:59] LABS: Amphetamine Screen,Urine Negative ng/mL (Cutoff=1000); Barbiturate Screen,Urine Negative ng/mL (Cutoff=200); Benzodiazepines Screen,Urine Negative ng/mL (Cutoff=200); Cannabinoid Screen,Urine Negative ng/mL (Cutoff = 50); Cocaine Screen,Urine Negative ng/mL (Cutoff= 300); Opiate Screen,Urine Negative ng/mL (Cutoff=300); Phencyclidine Screen,Urine Negative ng/mL (Cutoff=25)
[2021-09-19] MEDS ORDERED: CefTRIAXone 1,000 MG VIAL IM ONE (20:32)
[2021-09-19] MEDS ORDERED: Ondansetron 4 MG/2 ML VIAL IVP PRN (23:06)
[2021-09-19] MEDS ORDERED: Naloxone 0.4 MG/ML INJ IVP PRN (23:06)
[2021-09-19] MEDS ORDERED: 0.9 % Sodium Chloride 1,000 ML IVC SCH (23:15)
[2021-09-20 01:54] LABS: Hematocrit 29.5 % (35.3-44.9); Mean Corpuscular HGB Conc 33.6 g/dL (31.6-35.5); Mean Corpuscular Hemoglobin 30.7 pg (28.0-33.3); Mean Corpuscular Volume 91.3 fL (83.0-100.0); Mean Platelet Volume 10.1 fL (9.4-12.4); Platelet Count 183 K/mcL (140-400); Red Blood Count 3.23 M/mcL (3.82-4.97); Red Cell Distribution Width 14.2 % (11.5-14.5); White Blood Count 5.8 K/mcL (4.3-11.1)
[2021-09-20 01:56] LABS: Hemoglobin 9.9 g/dL (11.5-15.4)
[2021-09-20 02:03] LABS: INR 1.2; Prothrombin Time 12.9 Seconds (9.4-12.1)
[2021-09-20 02:05] LABS: Activated Partial Thrombo Time 29.4 Seconds (26.0-36.0)
[2021-09-20 02:14] LABS: BUN/Creatinine Ratio 23 (6-26); Blood Urea Nitrogen 23 mg/dL (8-23); Calcium 8.7 mg/dL (8.6-10.3); Carbon Dioxide 23 mEq/L (23-29); Chloride 106 mEq/L (98-107); Glucose 94 mg/dL (70-105); Magnesium 1.5 mg/dL (1.6-2.6); Osmolality,Calculated 287 (280-300); Phosphorous 3.1 mg/dL (2.7-4.5); Sodium 137 mEq/L (136-145); eGFR For African Americans > 60 (> 60); eGFR For Non-African Americans 52 (> 60)
[2021-09-20] MEDS ORDERED: *HR* Dextrose 50 % in Water (Syg) 50 ML SYRINGE IVP PRN (02:40)
[2021-09-20] MEDS ORDERED: Dextrose 4 GM Chewable Tablets PO PRN ×2 (02:40)
[2021-09-20] MEDS ORDERED: D5% in Water 1,000 ML IVC PRN (02:40)
[2021-09-20] MEDS: *HR* Heparin 5,000 UNIT/ML VIAL SQ SCH ×3 (04:56→21:22)
[2021-09-20 08:03] LABS: Hematocrit 29.7 % (35.3-44.9); Hemoglobin 9.9 g/dL (11.5-15.4)
[2021-09-20] MEDS: Lactobacillus 1 EACH CAP.SPRINK PO SCH ×2 (08:51→21:21)
[2021-09-20] MEDS: amLODIPine 5 MG TABLET PO SCH (08:51)
[2021-09-20] MEDS: Aspirin Enteric Coated 81 MG Tablet PO SCH (08:51)
[2021-09-20] MEDS: Cholecalciferol (D-3) 1,000 UNIT (25MCG) TABLET PO SCH (08:51)
[2021-09-20] MEDS: Multivit/Ca/Min/Fe/FA 1 TAB TABLET PO SCH (08:51)
[2021-09-20] MEDS: cefTRIAXone 1,000 MG in Water for inj. (sterile) 10 ML IVP SCH (08:52)
[2021-09-20] MEDS: Insulin LISPRO 300 UNITS/3 ML VIAL SUBQ SCH ×3 (08:53→16:56)
[2021-09-20 08:59] LABS: Hematocrit 31.7 % (35.3-44.9); Hemoglobin 10.8 g/dL (11.5-15.4)
[2021-09-20 09:13] LABS: % Iron Saturation 16 % (15-50); Iron 39 mcg/dL (50-170); Transferrin 175 mg/dL (203-362)
[2021-09-20 09:31] LABS: Ferritin 84 ng/mL (10-120)
[2021-09-20 10:47] LABS: Folate 3.8 ng/mL (3.0-16.0)
[2021-09-20] MEDS ORDERED: ZIPRASIDONE HCL 60 MG PO SCH (21:00)
[2021-09-21] MEDS: *HR* Heparin 5,000 UNIT/ML VIAL SQ SCH ×3 (05:58→20:34)
[2021-09-21] MEDS: cefTRIAXone 1,000 MG in Water for inj. (sterile) 10 ML IVP SCH (07:53)
[2021-09-21] MEDS: Aspirin Enteric Coated 81 MG Tablet PO SCH (07:54)
[2021-09-21] MEDS: Multivit/Ca/Min/Fe/FA 1 TAB TABLET PO SCH (07:54)
[2021-09-21] MEDS: amLODIPine 5 MG TABLET PO SCH (07:54)
[2021-09-21] MEDS: Lactobacillus 1 EACH CAP.SPRINK PO SCH ×2 (07:54→20:31)
[2021-09-21] MEDS: Cholecalciferol (D-3) 1,000 UNIT (25MCG) TABLET PO SCH (07:54)
[2021-09-21] MEDS: Insulin LISPRO 300 UNITS/3 ML VIAL SUBQ SCH ×3 (08:14→16:31)
[2021-09-21] MEDS: Fluticasone Propionate Nasal 50 MCG/SPRAY BOTTLE NS SCH (08:53)
[2021-09-21] MEDS ORDERED: Cholecalciferol (D-3) 1,000 UNIT (25MCG) TABLET PO SCH (09:00)
[2021-09-21 09:31] LABS: Basophils % 0.8 %; Eosinophils # 0.1 K/mcL (0.0-0.6); Eosinophils % 1.8 %; Hematocrit 31.7 % (35.3-44.9); Hemoglobin 10.4 g/dL (11.5-15.4); Immature Granulocytes % 0.3 % (0-4); Lymphocytes # 1.8 K/mcL (0.6-4.6); Lymphocytes % 47.4 %; Mean Corpuscular HGB Conc 32.8 g/dL (31.6-35.5); Mean Corpuscular Hemoglobin 30.2 pg (28.0-33.3); Mean Corpuscular Volume 92.2 fL (83.0-100.0); Mean Platelet Volume 9.3 fL (9.4-12.4); Monocytes # 0.4 K/mcL (0.0-1.3); Monocytes % 10.5 %; Neutrophils # 1.5 K/mcL (1.6-8.9); Platelet Count 181 K/mcL (140-400); Red Blood Count 3.44 M/mcL (3.82-4.97); Red Cell Distribution Width 14.1 % (11.5-14.5); Segmented Neutrophils % 39.2 %; White Blood Count 3.8 K/mcL (4.3-11.1)
[2021-09-21] MEDS: Melatonin 3 MG TABLET PO PRN (20:31)
[2021-09-22] MEDS: *HR* Heparin 5,000 UNIT/ML VIAL SQ SCH ×3 (06:02→20:58)
[2021-09-22] MEDS: Insulin LISPRO 300 UNITS/3 ML VIAL SUBQ SCH ×3 (07:37→16:54)
[2021-09-22] MEDS: amLODIPine 5 MG TABLET PO SCH (07:48)
[2021-09-22] MEDS: Lactobacillus 1 EACH CAP.SPRINK PO SCH ×2 (07:48→20:59)
[2021-09-22] MEDS: Cholecalciferol (D-3) 1,000 UNIT (25MCG) TABLET PO SCH (07:48)
[2021-09-22] MEDS: Multivit/Ca/Min/Fe/FA 1 TAB TABLET PO SCH (07:48)
[2021-09-22] MEDS: Aspirin Enteric Coated 81 MG Tablet PO SCH (07:48)
[2021-09-22] MEDS: Fluticasone Propionate Nasal 50 MCG/SPRAY BOTTLE NS SCH (07:49)
[2021-09-22] MEDS: cefTRIAXone 1,000 MG in Water for inj. (sterile) 10 ML IVP SCH (07:49)
[2021-09-22 10:47] LABS: Estimated Average Glucose 97 mg/dl
[2021-09-22] MEDS: Melatonin 3 MG TABLET PO PRN (20:59)
[2021-09-23] MEDS: *HR* Heparin 5,000 UNIT/ML VIAL SQ SCH ×3 (05:34→20:56)
[2021-09-23] MEDS: Insulin LISPRO 300 UNITS/3 ML VIAL SUBQ SCH ×3 (08:21→16:52)
[2021-09-23] MEDS: cefTRIAXone 1,000 MG in Water for inj. (sterile) 10 ML IVP SCH (08:21)
[2021-09-23] MEDS: Aspirin Enteric Coated 81 MG Tablet PO SCH (08:22)
[2021-09-23] MEDS: Lactobacillus 1 EACH CAP.SPRINK PO SCH ×2 (08:22→20:55)
[2021-09-23] MEDS: amLODIPine 5 MG TABLET PO SCH (08:22)
[2021-09-23] MEDS: Multivit/Ca/Min/Fe/FA 1 TAB TABLET PO SCH (08:22)
[2021-09-23] MEDS: Fluticasone Propionate Nasal 50 MCG/SPRAY BOTTLE NS SCH (08:22)
[2021-09-23] MEDS: Cholecalciferol (D-3) 1,000 UNIT (25MCG) TABLET PO SCH (08:22)
[2021-09-23] MEDS: Melatonin 3 MG TABLET PO PRN (20:55)
[2021-09-23] MEDS: Acetaminophen 325 MG TABLET PO PRN (20:55)
[2021-09-24] MEDS: *HR* Heparin 5,000 UNIT/ML VIAL SQ SCH ×3 (05:50→20:38)
[2021-09-24] MEDS: Insulin LISPRO 300 UNITS/3 ML VIAL SUBQ SCH ×3 (07:01→16:39)
[2021-09-24] MEDS: Fluticasone Propionate Nasal 50 MCG/SPRAY BOTTLE NS SCH (07:25)
[2021-09-24] MEDS: amLODIPine 5 MG TABLET PO SCH (07:28)
[2021-09-24] MEDS: Aspirin Enteric Coated 81 MG Tablet PO SCH (07:28)
[2021-09-24] MEDS: Multivit/Ca/Min/Fe/FA 1 TAB TABLET PO SCH (07:28)
[2021-09-24] MEDS: Lactobacillus 1 EACH CAP.SPRINK PO SCH ×2 (07:29→20:37)
[2021-09-24] MEDS: Cholecalciferol (D-3) 1,000 UNIT (25MCG) TABLET PO SCH (07:29)
[2021-09-24] MEDS: Acetaminophen 325 MG TABLET PO PRN (20:37)
[2021-09-24] MEDS: Melatonin 3 MG TABLET PO PRN (20:38)
[2021-09-25] MEDS: *HR* Heparin 5,000 UNIT/ML VIAL SQ SCH (06:13)
[2021-09-25 06:48] VITALS: BP 138/70; PULSE 62; TEMP 97.9; O2SAT 98
[2021-09-25] MEDS: Insulin LISPRO 300 UNITS/3 ML VIAL SUBQ SCH ×2 (07:34→11:29)
[2021-09-25] MEDS: Fluticasone Propionate Nasal 50 MCG/SPRAY BOTTLE NS SCH (07:37)
[2021-09-25] MEDS: Multivit/Ca/Min/Fe/FA 1 TAB TABLET PO SCH (08:32)
[2021-09-25] MEDS: Aspirin Enteric Coated 81 MG Tablet PO SCH (08:32)
[2021-09-25] MEDS: Lactobacillus 1 EACH CAP.SPRINK PO SCH (08:32)
[2021-09-25] MEDS: amLODIPine 5 MG TABLET PO SCH (08:32)
[2021-09-25] MEDS: Cholecalciferol (D-3) 1,000 UNIT (25MCG) TABLET PO SCH (08:33)
[2021-09-25] MEDS ORDERED: COVID-19 VAC,AD26(JANSSEN)/PF 0.5 ML VIAL IM ONE (10:00)
[2021-09-25 11:04] LABS: Influenza A PCR Negative (Negative); Influenza B PCR Negative (Negative); Resp. Syncytial Virus PCR Negative (Negative)
[2021-09-25 11:10] LABS: SARS-CoV-2 by PCR (In House) Negative (Negative)
== END 2021-09-25 13:18 | DRG 690 ==
LOC: 3BNU 17:17 → EMEROOARM 17:17 → SUATTDRO 23:23 → 3BNU 23:59 → SUATTDRO 09-20 11:14
PROVIDERS: ADMIT Internal Medicine; ATTEND Internal Medicine

== ENCOUNTER 2022-03-01 14:55 | Inpatient (IN) ==
[2022-03-01 16:07] LABS: Basophils % 0.4 %; Hematocrit 34.5 % (35.3-44.9); Hemoglobin 11.6 g/dL (11.5-15.4); Lymphocytes # 1.3 K/mcL (0.6-4.6); Lymphocytes % 24.5 %; Mean Corpuscular HGB Conc 33.6 g/dL (31.6-35.5); Mean Corpuscular Hemoglobin 31.4 pg (28.0-33.3); Mean Corpuscular Volume 93.2 fL (83.0-100.0); Mean Platelet Volume 10.1 fL (9.4-12.4); Monocytes # 0.8 K/mcL (0.0-1.3); Monocytes % 14.9 %; Platelet Count 196 K/mcL (140-400); Red Cell Distribution Width 13.9 % (11.5-14.5); Segmented Neutrophils % 59.2 %; White Blood Count 5.1 K/mcL (4.3-11.1)
[2022-03-01 16:11] LABS: Prothrombin Time 11.4 Seconds (9.4-12.1)
[2022-03-01 16:17] LABS: Bacteria,Urine Moderate per hpf (None-Few); Bilirubin,Urine Negative (Negative); Blood,Urine Trace (Negative); Clarity,Urine Clear (Clear); Color,Urine Colorless (Yellow); Glucose,Urine (UA) Normal (Normal); Ketones,Urine Negative (Negative); Leukocyte Esterase,Urine Negative (Negative); Mucus,Urine Few per lpf (None-Few); Nitrite,Urine Negative (Negative); Protein,Urine 200 mg/dL (Neg-Trace); Specific Gravity,Urine 1.008 (1.010-1.025); Squamous Epithelial Cell,Urine Few per hpf (None-Few); Urobilinogen,Urine Normal (Normal)
[2022-03-01 16:33] LABS: Calcium 9.7 mg/dL (8.6-10.3)
[2022-03-01] MEDS ORDERED: Morphine Sulfate 2 MG/ML SYRINGE IVP ONE (17:33)
[2022-03-01] MEDS ORDERED: Ondansetron 4 MG/2 ML VIAL IVP ONE (17:33)
[2022-03-01] MEDS ORDERED: Naloxone 0.4 MG/ML INJ IVP PRN (18:12)
[2022-03-01] MEDS ORDERED: Melatonin 3 MG TABLET PO PRN (18:12)
[2022-03-01] MEDS ORDERED: D5% in Water 1,000 ML IVC PRN (18:12)
[2022-03-01] MEDS ORDERED: Ondansetron 4 MG/2 ML VIAL IVP PRN (18:12)
[2022-03-01] MEDS ORDERED: *HR* Dextrose 50 % in Water (Syg) 50 ML SYRINGE IVP PRN (18:12)
[2022-03-01] MEDS ORDERED: Dextrose Gel 15 GM/37.5 ML TUBE PO PRN ×2 (18:12)
[2022-03-01] MEDS ORDERED: ZIPRASIDONE HCL 60 MG PO SCH (21:00)
[2022-03-01] MEDS: risperiDONE 1 MG TABLET PO SCH (22:11)
[2022-03-02] MEDS: 0.9 % Sodium Chloride 1,000 ML IVC SCH ×2 (00:33→19:47)
[2022-03-02 05:04] LABS: Basophils % 0.3 %; Hematocrit 27.1 % (35.3-44.9); Immature Granulocytes % 0.3 % (0-4); Lymphocytes # 0.8 K/mcL (0.6-4.6); Lymphocytes % 19.6 %; Mean Corpuscular HGB Conc 33.2 g/dL (31.6-35.5); Mean Corpuscular Hemoglobin 30.7 pg (28.0-33.3); Mean Corpuscular Volume 92.5 fL (83.0-100.0); Mean Platelet Volume 9.6 fL (9.4-12.4); Monocytes # 0.8 K/mcL (0.0-1.3); Monocytes % 19.3 %; Neutrophils # 2.4 K/mcL (1.6-8.9); Platelet Count 169 K/mcL (140-400); Red Blood Count 2.93 M/mcL (3.82-4.97); Segmented Neutrophils % 60.5 %
[2022-03-02 05:24] LABS: Albumin 3.5 g/dL (3.5-5.7); Albumin/Globulin Ratio 1.3 (1.1-2.2); Bilirubin,Total 0.3 mg/dL (0.3-1.0); Calcium 8.7 mg/dL (8.6-10.3); Globulin 2.8 g/dL (2.4-3.5); Potassium 3.4 mEq/L (3.5-5.1); Total Protein 6.3 g/dL (6.4-8.9)
[2022-03-02] MEDS ORDERED: *HR* Heparin 5,000 UNIT/ML VIAL SQ SCH (06:00)
[2022-03-02] MEDS ORDERED: Famotidine 20 MG/2 ML VIAL IVP ONE (09:06)
[2022-03-02] MEDS ORDERED: Acetaminophen IV 1,000 MG/100 ML BAG IVPB ONE (09:06)
[2022-03-02] MEDS ORDERED: CeFAZolin Syr 2,000MG/20 ML 2,000 MG/20 ML SYRINGE IVPB ONE (09:15)
[2022-03-02] MEDS ORDERED: Ringers Solution, Lactated 1,000 ML IVC SCH (09:15)
[2022-03-02] MEDS ORDERED: *HR* FentaNYL (PF) 100 MCG/2 ML VIAL ONE (09:17)
[2022-03-02] MEDS ORDERED: Ropivacaine/PF 0.5% 30 ML VIAL ONE (09:21)
[2022-03-02] MEDS ORDERED: Lidocaine -MPF 2% 5 ML VIAL ONE (09:39)
[2022-03-02] MEDS ORDERED: Ondansetron 4 MG/2 ML VIAL ONE (09:39)
[2022-03-02] MEDS ORDERED: *HR* Rocuronium Bromide 50 MG/5 ML VIAL ONE (09:39)
[2022-03-02] MEDS ORDERED: *HR* Propofol 200 MG/20 ML VIAL IVP ONE (09:40)
[2022-03-02] MEDS ORDERED: *HR* Phenylephrine 10 MG/ML VIAL ONE (10:05)
[2022-03-02] MEDS ORDERED: Tranexamic Acid 1,000 MG/10 ML VIAL ONE (11:09)
[2022-03-02] MEDS ORDERED: Albumin Human 5% 12.5 GM/250 ML IV.SOLN ONE (13:31)
[2022-03-02] MEDS: Albumin Human 5% 12.5 GM/250 ML IV.SOLN IVPB ONE ×2 (13:36→14:19)
[2022-03-02] MEDS ORDERED: Calcium Gluconate 1,000 MG/10 ML VIAL ONE (14:09)
[2022-03-02] MEDS ORDERED: EPHEDrine 50 MG/ML VIAL ONE (14:36)
[2022-03-02 15:39] LABS: Hematocrit 15.6 % (35.3-44.9); Mean Corpuscular HGB Conc 32.1 g/dL (31.6-35.5); Mean Corpuscular Hemoglobin 30.9 pg (28.0-33.3); Mean Corpuscular Volume 96.3 fL (83.0-100.0); Mean Platelet Volume 9.8 fL (9.4-12.4); Platelet Count 124 K/mcL (140-400); Red Blood Count 1.62 M/mcL (3.82-4.97); Red Cell Distribution Width 14.2 % (11.5-14.5); White Blood Count 5.1 K/mcL (4.3-11.1)
[2022-03-02 15:47] LABS: Calcium 8.5 mg/dL (8.6-10.3); Potassium 3.6 mEq/L (3.5-5.1)
[2022-03-02 17:37] LABS: VBG Ionized Calcium 1.07 mmol/L (1.15-1.35)
[2022-03-02 17:51] LABS: Hematocrit 23.5 % (35.3-44.9)
[2022-03-02] MEDS: CeFAZolin 2,000 MG/120 ML BAG IVPB SCH (20:43)
[2022-03-02 20:48] LABS: Hematocrit 23.6 % (35.3-44.9)
[2022-03-02] MEDS ORDERED: Dexmedetomidine HCl 400 MCG/100 ML MLS IVC SCH (21:15)
[2022-03-02] MEDS: risperiDONE 1 MG TABLET PO SCH (21:18)
[2022-03-02 23:01] LABS: Hematocrit 21.5 % (35.3-44.9); Hemoglobin 7.3 g/dL (11.5-15.4)
[2022-03-03] MEDS: CeFAZolin 2,000 MG/120 ML BAG IVPB SCH (04:43)
[2022-03-03] MEDS ORDERED: *HR* Enoxaparin 40 MG/0.4 ML SYRINGE SQ SCH ×2 (06:00→07:00)
[2022-03-03 06:27] LABS: Hemoglobin 7.8 g/dL (11.5-15.4)
[2022-03-03 06:28] LABS: Hematocrit 22.4 % (35.3-44.9); Immature Platelets 5.7 % (1.1-6.1); Mean Corpuscular HGB Conc 34.8 g/dL (31.6-35.5); Mean Corpuscular Hemoglobin 31.8 pg (28.0-33.3); Mean Corpuscular Volume 91.4 fL (83.0-100.0); Mean Platelet Volume 10.6 fL (9.4-12.4); Red Blood Count 2.45 M/mcL (3.82-4.97); Red Cell Distribution Width 14.4 % (11.5-14.5)
[2022-03-03 06:34] LABS: INR 1.1; Prothrombin Time 12.2 Seconds (9.4-12.1)
[2022-03-03 06:37] LABS: Activated Partial Thrombo Time 22.2 Seconds (26.0-36.0)
[2022-03-03 06:45] LABS: Calcium 8.2 mg/dL (8.6-10.3); Potassium 3.5 mEq/L (3.5-5.1)
[2022-03-03] MEDS ORDERED: NON-FORMULARY MEDICATION 1 EACH EACH (Calcium Carbonate/Vitamin D3 [Calcium 600 + Vit D Ta PO SCH (09:00)
[2022-03-03] MEDS ORDERED: Multivit/Ca/Min/Fe/FA 1 TAB TABLET PO SCH (09:00)
[2022-03-03] MEDS ORDERED: Fluticasone Propionate Nasal 50 MCG/SPRAY BOTTLE NS SCH (09:00)
[2022-03-03] MEDS ORDERED: Furosemide 20 MG TABLET PO SCH (09:00)
[2022-03-03] MEDS ORDERED: Cholecalciferol (D-3) 1,000 UNIT (25MCG) TABLET PO SCH (09:00)
[2022-03-03] MEDS ORDERED: Mirtazapine 15 MG TABLET PO SCH (09:00)
[2022-03-03] MEDS ORDERED: *HR* Dextrose 50 % in Water (Syg) 50 ML SYRINGE IVP PRN (11:48)
[2022-03-03] MEDS ORDERED: D5% in Water 1,000 ML IVC PRN (11:48)
[2022-03-03] MEDS ORDERED: Ondansetron 4 MG/2 ML VIAL IVP PRN (11:48)
[2022-03-03] MEDS ORDERED: Dextrose Gel 15 GM/37.5 ML TUBE PO PRN ×2 (11:48)
[2022-03-03] MEDS ORDERED: Naloxone 0.4 MG/ML INJ IVP PRN (11:48)
[2022-03-03 15:34] LABS: Influenza A PCR Negative (Negative); Influenza B PCR Negative (Negative); Resp. Syncytial Virus PCR Negative (Negative)
[2022-03-03 15:37] LABS: SARS-CoV-2 by PCR (In House) Positive (Negative)
[2022-03-03 17:46] LABS: Hematocrit 21.5 % (35.3-44.9); Hemoglobin 7.4 g/dL (11.5-15.4)
[2022-03-03] MEDS: risperiDONE 1 MG TABLET PO SCH (20:31)
[2022-03-03] MEDS: Melatonin 3 MG TABLET PO PRN (20:34)
[2022-03-04] MEDS: Cholecalciferol (D-3) 1,000 UNIT (25MCG) TABLET PO SCH (07:44)
[2022-03-04] MEDS: Mirtazapine 15 MG TABLET PO SCH (07:45)
[2022-03-04] MEDS: Furosemide 20 MG TABLET PO SCH (07:45)
[2022-03-04] MEDS: Multivit/Ca/Min/Fe/FA 1 TAB TABLET PO SCH (07:46)
[2022-03-04] MEDS: Fluticasone Propionate Nasal 50 MCG/SPRAY BOTTLE NS SCH (07:55)
[2022-03-04 12:36] LABS: Hemoglobin 7.9 g/dL (11.5-15.4); Mean Corpuscular HGB Conc 34.3 g/dL (31.6-35.5); Mean Corpuscular Hemoglobin 31.7 pg (28.0-33.3); Mean Corpuscular Volume 92.4 fL (83.0-100.0); Platelet Count 110 K/mcL (140-400); Red Blood Count 2.49 M/mcL (3.82-4.97); Red Cell Distribution Width 15.2 % (11.5-14.5); White Blood Count 6.6 K/mcL (4.3-11.1)
[2022-03-04 12:55] LABS: Calcium 8.3 mg/dL (8.6-10.3); Potassium 3.3 mEq/L (3.5-5.1)
[2022-03-04] MEDS: risperiDONE 1 MG TABLET PO SCH (22:11)
[2022-03-05] MEDS: Cholecalciferol (D-3) 1,000 UNIT (25MCG) TABLET PO SCH (11:01)
[2022-03-05] MEDS: Mirtazapine 15 MG TABLET PO SCH (11:02)
[2022-03-05] MEDS: Furosemide 20 MG TABLET PO SCH (11:02)
[2022-03-05] MEDS: Multivit/Ca/Min/Fe/FA 1 TAB TABLET PO SCH (11:24)
[2022-03-05] MEDS: Fluticasone Propionate Nasal 50 MCG/SPRAY BOTTLE NS SCH (11:24)
[2022-03-05] MEDS: risperiDONE 1 MG TABLET PO SCH (23:46)
[2022-03-05] MEDS: Melatonin 3 MG TABLET PO PRN (23:46)
[2022-03-06] MEDS: Fluticasone Propionate Nasal 50 MCG/SPRAY BOTTLE NS SCH (14:25)
[2022-03-06] MEDS: Cholecalciferol (D-3) 1,000 UNIT (25MCG) TABLET PO SCH (14:26)
[2022-03-06] MEDS: Multivit/Ca/Min/Fe/FA 1 TAB TABLET PO SCH (14:26)
[2022-03-06] MEDS: Furosemide 20 MG TABLET PO SCH (14:26)
[2022-03-06] MEDS: Mirtazapine 15 MG TABLET PO SCH (14:26)
[2022-03-06] MEDS: risperiDONE 1 MG TABLET PO SCH (23:07)
[2022-03-06] MEDS: Melatonin 3 MG TABLET PO PRN (23:08)
[2022-03-07 09:55] LABS: Hemoglobin 6.7 g/dL (11.5-15.4); Mean Corpuscular HGB Conc 33.5 g/dL (31.6-35.5); Mean Corpuscular Hemoglobin 31.2 pg (28.0-33.3); Mean Platelet Volume 9.8 fL (9.4-12.4); Platelet Count 166 K/mcL (140-400); Red Blood Count 2.15 M/mcL (3.82-4.97); Red Cell Distribution Width 14.6 % (11.5-14.5); White Blood Count 6.3 K/mcL (4.3-11.1)
[2022-03-07 10:09] LABS: Calcium 8.6 mg/dL (8.6-10.3); Potassium 4.1 mEq/L (3.5-5.1)
[2022-03-07] MEDS ORDERED: 0.9 % Sodium Chloride 250 ML IVC SCH (11:45)
[2022-03-07] MEDS: Cholecalciferol (D-3) 1,000 UNIT (25MCG) TABLET PO SCH (14:31)
[2022-03-07] MEDS: Furosemide 20 MG TABLET PO SCH (14:31)
[2022-03-07] MEDS: Multivit/Ca/Min/Fe/FA 1 TAB TABLET PO SCH (14:31)
[2022-03-07] MEDS: Fluticasone Propionate Nasal 50 MCG/SPRAY BOTTLE NS SCH (14:31)
[2022-03-07] MEDS: Mirtazapine 15 MG TABLET PO SCH (14:32)
[2022-03-07] MEDS: risperiDONE 1 MG TABLET PO SCH (20:37)
[2022-03-07] MEDS: Melatonin 3 MG TABLET PO PRN (20:38)
[2022-03-08 07:00] LABS: Hematocrit 21.8 % (35.3-44.9); Hemoglobin 7.2 g/dL (11.5-15.4); Mean Corpuscular Hemoglobin 29.9 pg (28.0-33.3); Mean Corpuscular Volume 90.5 fL (83.0-100.0); Mean Platelet Volume 10.1 fL (9.4-12.4); Platelet Count 185 K/mcL (140-400); Red Blood Count 2.41 M/mcL (3.82-4.97); Red Cell Distribution Width 15.3 % (11.5-14.5); White Blood Count 4.6 K/mcL (4.3-11.1)
[2022-03-08] MEDS: Cholecalciferol (D-3) 1,000 UNIT (25MCG) TABLET PO SCH (07:40)
[2022-03-08] MEDS: Furosemide 20 MG TABLET PO SCH (07:40)
[2022-03-08] MEDS: Multivit/Ca/Min/Fe/FA 1 TAB TABLET PO SCH (07:40)
[2022-03-08] MEDS: Mirtazapine 15 MG TABLET PO SCH (07:40)
[2022-03-08] MEDS: Fluticasone Propionate Nasal 50 MCG/SPRAY BOTTLE NS SCH (07:41)
[2022-03-08 07:55] LABS: Calcium 8.3 mg/dL (8.6-10.3); Potassium 3.9 mEq/L (3.5-5.1)
[2022-03-08 12:03] VITALS: BP 125/60; PULSE 66; TEMP 98.7; O2SAT 96
[2022-03-08 14:03] LABS: Hemoglobin 7.5 g/dL (11.5-15.4)
== END 2022-03-08 15:06 | DRG 480 ==
LOC: 4WAOSI 14:55 → EMEROOARM 14:55 → 4WAOSI 18:45 → ICNU 03-02 17:01 → 4WAOSI 03-03 11:44
PROVIDERS: ADMIT Student in an Organized Health Care Education/Training Program; ATTEND Student in an Organized Health Care Education/Training Program